=== PATIENT | male | born 1980 | race Caucasian/White ===

== ENCOUNTER 2020-02-14 22:28 | Emergency (ER) | payer SELFPAY ==
--- NOTE | ~2020-02-14 | XR_ITS ---
EXAMINATION: XR chest 2V DATE: 02/14/2020 23:17 INDICATION: Dizziness. TECHNIQUE: Frontal and lateral views of the chest were obtained on 3 radiographs. COMPARISON: None. FINDINGS: The chest demonstrates clear lungs without pneumonia, pleural effusion, or pneumothorax. Th e heart size is normal. IMPRESSION: 1. No acute cardiopulmonary disease. Reviewed, dictated and finalized at location A.
--- NOTE | ~2020-02-14 | CT_ITS ---
EXAMINATION: CT brain wo con DATE: 02/14/2020 23:17 INDICATION: Dizziness. TECHNIQUE: Computed tomography (CT) of the head was performed without intravenous contrast. The mA wa s adjusted according to patient size. Iterative reconstruction technique was employed. The dose-lengt h product was 605.33 mGy-cm. COMPARISON: None FINDINGS: There is no intracranial hemorrhage, acute infarction, or abnormal intracranial mass lesion . The ventricles are normal in size. The orbits are normal. There is mild mucosal thickening in the p aranasal sinuses. The mastoid air cells are normal. IMPRESSION: 1. Normal brain. Reviewed, dictated and finalized at location A. IMPRESSION: 1. Normal brain.
[2020-02-14 22:35] VITALS: BP 151/96; PULSE 84; RESP 20; TEMP 36.9; O2SAT 100
--- NOTE | 2020-02-14 22:35 | ECG_ITS ---
Measurements Intervals [place] Rate: 73 P: 56 [place]: 155 QRS: 9 QRSD: 97 T: 21 QT: 354 QTc: 392 Interpretive Statements SINUS RHYTHM WITH MARKED SINUS ARRHYTHMIA BASELINE ARTIFACT- I, II, III, AVL, AVF BORDERLINE ECG Electronically Signed On 02-16-2020 7:37:57 CDT by Carlos James D.O.
[2020-02-14 22:40] VITALS: PULSE 73
[2020-02-14] MEDS: ONDANSETRON INJ 4 MG/2 ML VIAL IV PUSH (22:43)
[2020-02-14] MEDS: MECLIZINE HCL 25 MG TABLET PO (22:43)
[2020-02-14 22:50] LABS: Basophils Absolute Auto 0.06 K/mm3 (0.00-0.10); Basophils Percent Auto 0.6 % (0.0-1.0); Eosinophils Absolute Auto 0.19 K/mm3 (0.02-0.50); Eosinophils Percent Auto 1.8 % (1.0-6.0); Hematocrit 43.3 % (40.0-54.0); Hemoglobin 14.7 g/dL (14.0-18.0); Immature Granulocyte Absolute 0.06 K/mm3 (0.00-0.00); Immature Granulocyte Percent A 0.6 % (0.0-0.0); Lymphocytes Absolute Auto 2.32 K/mm3 (1.10-4.50); Lymphocytes Percent Auto 22.5 % (18.0-42.0); Mean Corpuscular HGB Conc 33.9 g/dL (32.0-36.0); Mean Corpuscular Hemoglobin 28.4 pg (27.0-31.0); Mean Corpuscular Volume 83.8 fL (78.0-102.0); Mean Platelet Volume 9.6 fl (8.7-11.0); Monocytes Absolute Auto 0.47 K/mm3 (0.10-0.90); Monocytes Percent Auto 4.5 % (2.0-11.0); Neutrophils Absolute Auto 7.2 K/mm3 (1.7-7.2); Platelet Count Result 246 K/mm3 (150-420); Red Blood Count 5.17 M/mm3 (4.70-6.10); Red Cell Distribution Width 12.5 % (11.6-14.4); White Blood Count 10.3 K/mm3 (4.8-10.8)
[2020-02-14 23:03] LABS: D Dimer 0.26 mg/L (0.19-0.50)
[2020-02-14 23:07] LABS: Alanine Aminotransferase 54 U/L (16-63); Albumin Level 3.8 g/dL (3.4-5.0); Alkaline Phosphatase 56 U/L (46-116); Anion Gap 11.8 mmol/L (7-16); Aspartate Amino Transferase 29 U/L (15-37); Bilirubin,Total 0.3 mg/dL (0.00-1.00); Blood Urea Nitrogen 24 mg/dL (7-18); Calcium 8.6 mg/dL (8.5-10.1); Carbon Dioxide 28 mmol/L (21-32); Chloride 103 mmol/L (98-108); Estimated Glomerular Filt Rate > 60; Glucose 143 mg/dL (70-99); Magnesium 1.7 mg/dL (1.8-2.4); Osmolality Calculated 296 mOsm/kg (285-295); Potassium 2.8 mmol/L (3.5-5.1); Sodium 140 mmol/L (136-145); Total Protein 7.1 g/dL (6.4-8.2)
[2020-02-14 23:12] LABS: Troponin I < 0.02 ng/mL (0.00-0.056)
[2020-02-14 23:13] LABS: BNP < 5.0 pg/mL (0-100)
[2020-02-14 23:17] LABS: INR 1.1; Partial Thromboplastin Time 24.7 SEC (22.3-31.6); Prothrombin Time 11.3 Seconds (9.64-11.0)
[2020-02-14 23:24] LABS: Creatine Kinase 423 U/L (39-308)
[2020-02-14] MEDS: KCL 20 MEQ/SW 100 ML 100 ML 50 MEQ IVPB (23:41)
--- NOTE | 2020-02-14 23:41 | ED.GENADULT ---
HPI - General Adult General Chief complaint: Chest Pain Stated complaint: ambulance Source: patient Mode of arrival: ambulatory Limitations: no limitations History of Present Illness HPI narrative: this is a 39-year-old male presents via EMS with some dizziness with nausea with weakness with currently no chest pain no shortness of breath no abdominal pain no diarrhea constipation. Symptoms have been going on for approximately 1 week and felt weak and dizzy and folic he was going to pass out and called EMS. Patient has no significant past medical history, states that he drinks about 4 to 5 energy drinks daily. Onset (ago): day(s) Severity: mild Associated symptoms: diaphoresis, nausea/vomiting and other ( Dizziness) Related Data Allergies Allergy/AdvReac Type Severity Reaction Status Date / Time No Known Allergies Allergy Verified 02/14/20 22:34 Review of Systems Review of Systems: All systems reviewed & are unremarkable except as noted in HPI and below PMFSH Past Medical History Medical History (Updated 02/15/20 @ 00:01 by Pablo De La Paz MD) Patient denies medical problems Exam Const: General: no acute distress and alert Orientation/consciousness: patient oriented x3 HENMT: Head: normal to inspection Ears: TM's normal bilaterally Eyes: Conjunctivae: conjunctivae normal Pupils: Equal, round and reactive pupils present EOM: EOMs intact bilaterally Neck: Neck: normal visual inspection, no lymphadenopathy and no meningeal signs Chest: Chest palpation & inspection: normal inspection of the chest Resp: Effort & Inspection: normal respiratory effort Cardio: Rate: regular rate Rhythm: regular rhythm GI: GI Palp: Yes Soft to palpation : Testes: Testes normal Back/Spine/Pelvis: Back: no CVA tenderness Skin: General skin exam: normal color Rashes: no rashes Neuro: General: patient oriented x3 Speech: normal speech Other: dizziness Psych: Appearance: grossly normal Mental Status: mental status grossly normal Thought content: Yes Normal thought content present Course Course Emergency Course: patient received a dose of meclizine, and Zofran and receiving IV fluids the patient after reassessment still feels little bit dizzy but is markedly improved. Currently there is no chest pain he denies any shortness of breath no nausea currently. Offered keep the patient overnight for observation but he would rather go home and rest with his family. Currently his potassium is 2.8 and will receive AK rider otherwise expressed to the patient that his labs were otherwise unremarkable. Vital Signs Vital signs: Vital Signs Temperature 36.9 C 02/14/20 22:35 Pulse Rate 84 02/14/20 22:35 Respiratory Rate 02/14/20 22:35 Blood Pressure 151/96 H 02/14/20 22:35 Pulse Oximetry 100 02/14/20 22:35 Temperature 36.9 C 02/14/20 22:35 Pulse Rate 84 02/14/20 22:35 Respiratory Rate 02/14/20 22:35 Blood Pressure 151/96 H 02/14/20 22:35 Pulse Oximetry 100 02/14/20 22:35 Medical Decision Making Medical Records Medical records reviewed: Yes I reviewed the patient's medical records. Vital Signs Vital Signs: Vital Signs Temperature 36.9 C 02/14/20 22:35 Pulse Rate 84 02/14/20 22:35 Respiratory Rate 02/14/20 22:35 Blood Pressure 151/96 H 02/14/20 22:35 Pulse Oximetry 100 02/14/20 22:35 Temperature 36.9 C 02/14/20 22:35 Pulse Rate 84 02/14/20 22:35 Respiratory Rate 02/14/20 22:35 Blood Pressure 151/96 H 02/14/20 22:35 Pulse Oximetry 100 02/14/20 22:35 Lab Data Lab results reviewed: Yes I reviewed the patient's lab results. Result diagrams: 02/14/20 22:44 02/14/20 22:44 Labs: Lab Results 02/14/20 02/14/20 02/14/20 Range/Units 22:44 22:44 22:44 WBC 10.3 (4.8-10.8) K/mm3 RBC 5.17 (4.70-6.10) M/mm3 Hgb 14.7 (14.0-18.0) g/dL Hct 43.3 (40.0-54.0) % MCV 83.8 (78.0-102.0) fL MC
[2020-02-15 00:06] VITALS: BP 144/86; PULSE 74; RESP 20; TEMP 36.6; O2SAT 98
[2020-02-15 00:14] LABS: Add Urine Microscopic? NO; Appearance Urine Clear (Clear); Bilirubin Urine Negative (Negative); Blood Urine Negative (Negative); Color Urine Yellow (Yellow); Glucose Urine UA Negative (Negative); Ketones Urine Negative (Negative); Leukocyte Esterase Ur Negative (Negative); Nitrate Urine Negative (Negative); Protein Urine Negative (Negative); Urobilinogen Urine 0.2 mg/dL (0.2-1.0); pH Urine 8.5 (5.0-8.0)
[2020-02-15] MEDS: SODIUM CHLORIDE 0.9% IV 500 ML 999 ML IV CONT (00:15)
[2020-02-15 00:21] LABS: Amphetamine Screen Urine Negative (Negative); Barbiturate Screen Urine Negative (Negative); Benzodiazepines Screen Urine Negative (Negative); Cannabinoid Screen Urine Negative (Negative); Cocaine Screen Urine Negative (Negative); Methadone Screen Urine Negative (Negative); Opiate Screen Urine Negative (Negative); Phencyclidine Screen Urine Negative (Negative)
--- NOTE | 2020-02-15 00:57 | PC.NURSE ---
potassium infusing without difficulty. female in room with pt. watching tv. no complaints voiced.
[2020-02-15 01:52] VITALS: BP 136/81; PULSE 99; RESP 20; TEMP 37.1; O2SAT 98
== END 2020-02-15 01:54 | disposition home or self-care (01) ==
PROVIDERS: Emergency Provider Emergency Medicine; PCP Internal Medicine
DX: R42 Dizziness and giddiness (principal); E87.6 Hypokalemia
CPT/HCPCS: 36415; 70450; 71046; 80053; 80307; 81003; 82550; 83735; 83880; 84484; 85025; 85380; 85610; 85730; 93005; 96365; 96375; 99284; A9270; J2405; J3480; J7040

== ENCOUNTER 2024-02-21 14:50 | Emergency (ER) | payer SELFPAY ==
[2024-02-21] VITALS (24 sets, daily range): BP systolic 137–174; BP diastolic 83–106; PULSE 72–103; RESP 14–32; TEMP 36.6; O2SAT 92–100
--- NOTE | ~2024-02-21 | XR_ITS ---
EXAMINATION: XR chest 1V portable DATE: 02/21/2024 15:45 INDICATION: Hypertension and diaphoresis TECHNIQUE: frontal view of the chest was obtained. COMPARISON: Chest radiograph dated 02/14/2020 FINDINGS: The lungs remain clear with no focal airspace opacities, pulmonary edema, pleural effusion or pneumot horax. The cardiomediastinal silhouette is normal. Visualized bones and soft tissues are unremarkable . IMPRESSION: 1. No acute cardiopulmonary disease. Reviewed, dictated and finalized at location A.
--- NOTE | ~2024-02-21 | CT_ITS ---
CT brain wo con Ordering provider: Agustin Luis MD History: 43 years Male with . severe solano, vertigo . Comparison: February 14, 2020 Technique: CT of the head without contrast. Radiation reduction technique utilized. DLP is 605.33 mGy-cm. FINDINGS: BRAIN PARENCHYMA AND CSF SPACES: No midline shift, mass effect or hemorrhage. The brain parenchyma a nd CSF spaces are otherwise normal. VISUALIZED PARANASAL SINUSES: Well aerated. MASTOIDS: Well aerated. BONES: The bones appear intact. SOFT TISSUES: Visualized nasopharynx is normal. Superficial soft tissues are normal. IMPRESSION: No acute intracranial findings. Reviewed, dictated and finalized at location A.
--- NOTE | 2024-02-21 15:01 | ECG_ITS ---
Test Date: 2024-02-21 14:51:13 Measurements Intervals [place] Rate: 104 P: 70 HI: 148 QRS: 51 QRSD: 90 T: 65 QT: 318 QTc: 419 Interpretive Statements SINUS TACHYCARDIA MINIMAL Q WAVES- INFERIOR LEADS BASELINE ARTIFACT- I, II, III, AVR, AVL, AVF, V4-V6 BORDERLINE ECG No previous ECG available for comparison Electronically Signed On 02-21-2024 16:42:17 CDT by Carlos James D.O.
[2024-02-21 15:44] LABS: Basophils Absolute Auto 0.07 K/mm3 (0.00-0.10); Basophils Percent Auto 0.6 % (0.0-1.0); Eosinophils Absolute Auto 0.07 K/mm3 (0.02-0.50); Eosinophils Percent Auto 0.6 % (1.0-6.0); Hematocrit 48.3 % (40.0-54.0); Hemoglobin 16.5 g/dL (14.0-18.0); Immature Granulocyte Absolute 0.07 K/mm3 (0.00-0.00); Immature Granulocyte Percent A 0.6 % (0.0-0.0); Lymphocytes Absolute Auto 1.87 K/mm3 (1.10-4.50); Lymphocytes Percent Auto 17.4 % (18.0-42.0); Mean Corpuscular HGB Conc 34.2 g/dL (32-36); Mean Corpuscular Hemoglobin 28.3 pg (27.0-31.0); Mean Corpuscular Volume 82.7 fL (78.0-102.0); Mean Platelet Volume 9.5 fl (8.7-11.0); Monocytes Absolute Auto 0.65 K/mm3 (0.10-0.90); Neutrophils Absolute Auto 8.04 K/mm3 (1.70-7.20); Neutrophils Percent Auto 74.8 % (50.0-70.0); Platelet Count Result 273 K/mm3 (150-420); Red Blood Count 5.84 M/mm3 (4.70-6.10); Red Cell Distribution Width 12.5 % (11.6-14.4); White Blood Count 10.8 K/mm3 (4.8-10.8)
[2024-02-21] MEDS: METOPROLOL TARTRATE INJ 5 MG/5 ML VIAL IV PUSH (15:50)
[2024-02-21] MEDS: diazePAM INJ (*CRX) 10 MG/2 ML SYRINGE 5 MG IV PUSH ×2 (15:57→19:34)
[2024-02-21] MEDS: MECLIZINE HCL 25 MG TABLET PO ×2 (15:59→21:08)
[2024-02-21 16:06] LABS: Alanine Aminotransferase 54 U/L (16-63); Albumin Level 4.3 g/dL (3.4-5.0); Alkaline Phosphatase 70 U/L (46-116); Anion Gap 11 mmol/L (4-12); Aspartate Amino Transferase 15 U/L (15-37); Bilirubin,Total 0.4 mg/dL (0.00-1.00); Blood Urea Nitrogen 18 mg/dL (7-18); Calcium 9.9 mg/dL (8.5-10.1); Carbon Dioxide 28 mmol/L (21-32); Chloride 100 mmol/L (98-108); Estimated CRCL calculation 100 ml/min; Estimated Glomerular Filt Rate > 60; Glucose 113 mg/dL (70-99); NT Pro B Type Natriuretic Pept < 11 pg/mL (0-125); Osmolality Calculated 290 mOsm/kg (285-295); Potassium 3.7 mmol/L (3.5-5.1); Sodium 139 mmol/L (136-145); Troponin I < 4.0 ng/L (0.00-60.4)
[2024-02-21 18:05] LABS: Appearance Urine Clear (Clear); Bilirubin Urine Negative (Negative); Blood Urine Negative (Negative); Color Urine Light Yellow (Yellow); Glucose Urine UA Negative (Negative); Ketones Urine Negative (Negative); Leukocyte Esterase Ur Negative LEU/UL (Negative); Nitrate Urine Negative (Negative); Protein Urine Negative (Negative); Urobilinogen Urine 0.2 mg/dL (0.2-1.0)
[2024-02-21 18:08] LABS: Add Urine Microscopic? NO
[2024-02-21] MEDS: ONDANSETRON INJ 4 MG/2 ML VIAL IV PUSH (18:11)
[2024-02-21 18:15] LABS: Amphetamine Screen Urine Negative (Negative); Barbiturate Screen Urine Negative (Negative); Benzodiazepines Screen Urine Negative (Negative); Cannabinoid Screen Urine Positive (Negative); Cocaine Screen Urine Negative (Negative); Methadone Screen Urine Negative (Negative); Opiate Screen Urine Negative (Negative); Phencyclidine Screen Urine Negative (Negative)
[2024-02-21] MEDS: fentaNYL CITRATE INJ (*CRX) 100 MCG/2 ML VIAL IV PUSH (18:15)
--- NOTE | 2024-02-21 18:16 | ED.DIZZY ---
HPI - Dizziness General Chief Complaint: Dizziness Stated Complaint: vertigo Time Seen by Provider: 02/21/24 15:23 Source: patient History of Present Illness HPI Narrative: 43-year-old white male with a long history of intermittent benign positional vertigo, and today it was much more significant than usual, and then he also has developed a headache with it. He reports any change in head position triggers his vertigo. He has to hold his head still and just look around with his eyes. Sitting up, laying back, turning left or right, looking up or down, all triggers the vertigo. When the vertigo hit he gets nauseated, diaphoretic, and he initially went to his doctor's office, it and was diaphoretic when he arrived and they sent him over here for further evaluation. His blood pressure was also noted to be elevated . Related Data Home Medications Medication Instructions Recorded Confirmed amlodipine 10 mg PO DAILY 02/21/24 02/21/24 Allergies Allergy/AdvReac Type Severity Reaction Status Date / Time No Known Allergies Allergy Verified 02/21/24 15:03 Review of Systems Review of Systems: All systems reviewed & are unremarkable except as noted in HPI and below PMFSH Past Medical History Medical History Patient denies medical problems Social History Social History Smoking status: Never smoker Tobacco type: e-cigarettes/vaping Alcohol intake: never Substance use: never Exam Narrative: pleasant well oriented, good historian, muscular, holds his head still while I talk to him and walk around the room. Const: General: healthy appearing, no acute distress, alert and well nourished Nutritional Appearance: well nourished Orientation/consciousness: patient oriented x3 Limitations: no limitations HENMT: Head: normal to inspection Ears: external ears normal Face/Nose/Sinus: Normal external nose present and normal facial exam Face and sinus: normal facial exam Mouth: Yes Normal oral and palatal mucosa present Teeth and gingiva: dentition normal Throat: posterior oropharynx normal Eyes: Conjunctivae: conjunctivae normal Pupils: Equal, round and reactive pupils present EOM: EOMs intact bilaterally Neck: Neck: normal visual inspection and no meningeal signs Chest: Chest palpation & inspection: normal inspection of the chest Resp: Effort & Inspection: normal respiratory effort Auscultation: clear to auscultation bilaterally Cardio: Rate: regular rate Rhythm: regular rhythm GI: GI Palp: Yes Soft to palpation and Yes Tenderness to palpation present (GI) Auscultation: normal bowel sounds Other: No mass, no organomegaly, no percussion or rebound tenderness : General: Yes bladder normal to palpation Skin: General skin exam: normal color Rashes: no rashes Wounds: no wounds Neuro: General: patient oriented x3, moves all extremities, no meningeal signs, no focal motor deficits and CN's II-XI intact bilaterally Cranial nerves: Yes Equal, round and reactive pupils present and Yes Nystagmus not present Speech: normal speech Gait exam (Neuro): Normal gait present Other: Positive Baranay's maneuvers Extrem: General: normal to inspection, no clubbing, cyanosis or edema and no pedal edema Psych: Mental Status: mental status grossly normal Attitude: cooperative Course Course Emergency Course: differential diagnosis includes but is not limited to benign positional vertigo, labyrinthitis, electrolyte abnormality, dehydration, CVA (less likely), complication of hypertension patient's NIH is 0 CBC is normal CMP is normal 2 troponins are flat drug screen is negative except for cannabis chest x-ray did not show any cardiopulmonary disease EKG is non acute CT the head is unremarkable patient was treated with 5 mg of Valium IV, Zofran 4 mg, then 25 of
[2024-02-21 19:16] LABS: Troponin I < 4.0 ng/L (0.00-60.4)
--- NOTE | 2024-02-21 20:22 | PC.NURSE ---
resting quietly on stretcher. family comes and goes out of the room. Call light is in reach. Denies any needs at this time
--- NOTE | 2024-02-21 20:55 | PC.NURSE ---
Jones was notified of current blood pressure
[2024-02-21] MEDS: diazePAM (*CRX) 5 MG TABLET PO (21:08)
--- NOTE | 2024-02-21 21:52 | PC.NURSE ---
ER provider notified of current blood pressure. he will place order fror blood pressure medication prior to discharge
[2024-02-21] MEDS: lisinopriL 10 MG TABLET PO (22:12)
--- NOTE | 2024-02-21 22:39 | PC.NURSE ---
IV line to left ac discontinued. discarded into sharps container. cannula intact.
== END 2024-02-21 22:39 | disposition home or self-care (01) ==
PROVIDERS: Emergency Provider Emergency Medicine; PCP Internal Medicine
DX: H81.10 Benign paroxysmal vertigo, unspecified ear (principal); I10 Essential (primary) hypertension
CPT/HCPCS: 36415; 70450; 71045; 80053; 80307; 81003; 83880; 84484; 85025; 93005; 96374; 96375; 96376; 99284; A9270; J2405; J3010; J3360

== ENCOUNTER 2024-06-17 08:59 | Outpatient (RCR) | payer MEDICAID, SELFPAY ==
--- NOTE | 2024-06-17 09:44 | OPREHPOC ---
Outpatient Therapy Plan of Care This is a Multidisciplinary Plan of Care that may contain components documented by all disciplines (PT, OT, and ST.) PT Problem 1 PT Problem #1 Knowledge Deficit PT Goal 1 Goal / Goal Update 1. independent and compliant with HEP Target Visit 6 PT Problem 2 PT Problem #2 Pain PT Goal 1 Goal / Goal Update 1. decrease pain at worst to 3/10 or less in the lower back Target Visit 12 PT Problem 3 PT Problem #3 Impaired Strength PT Goal 1 Goal / Goal Update 1. improve R hip strength to 5/5 or better overall 2. improve lumbar extension strength to 5/5 Target Visit 12 PT Problem 4 PT Problem #4 Impaired Flexibility PT Goal 1 Goal / Goal Update 1. improve bilateral hamstrings flexibility to 20 degrees or less from 0 per the 90/90 test. Target Visit 12 PT Problem 5 PT Problem #5 Impaired Functional Mobil PT Goal 1 Goal / Goal Update 1. oswestry to display 10% or less functional deficits 2. patient to displays safe/good lifting mechanics without pain 3. patient to lift 40lbs from floor to waist x10 reps without pain 4. patient to develop a 3x weekly workout regimen Target Visit 12
--- NOTE | 2024-06-17 09:44 | PTOPEVAL1 ---
Assessment and note entered by JT File, PT Evaluation Information Assessment Status Evaluation ICD-10 Condition Codes (PT) Pain in low back M54.50 Onset 06/10/24 Subjective Information patient reports he has had pain in the back for years. he reports he was told he has narrowing of the spine. he reports he does work. 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 he reports he has increased pain in the lower back with bending and lifting. he reports he does not have any symptoms down the legs. he reports the pain is mostly in the lower back along the L side of the spine. he reports he has reduced pain and symptoms with sitting. he reports he has to avoid certain movements/motions to avoid increased pain. he reports he did have xrays here at [facility]. Reported Pain Level Pain Score 1: Self Report Assessment PT Clinical Summary mr. juárez is a 43 yo man who presents to skilled PT services for evaluation and treatment of lower back pain. he presents today with normal lumbar rom, weak R hip extension/abduction, weak core strength, and deficits in flexion/lifting activities. however, he reports no radicular symptoms. he likely suffers from lumbar/core weakness and instability vs having a discoid injury. he would benefit from continued skilled PT to address his objective/functional deficits and progress towards a return to prior level functional activity performance/quality of life. Plan of Care Interventions Electrical Stimulation,Gait Training,Hot Pack/Cold Pack,Manual Therapy,Neuro Re-education,Patient/ Caregiver Educati,Therapeutic Activities, Therapeutic Exercise PT Services Indicated Yes Treatment Frequency and 2x weekly for 12 visits Duration These treatments will address the objective and functional deficits as defined above. The patient will be advanced safely and appropriately in order for the patient to progress towards his/her prior level of function. Additional exercises will be introduced and as well as a comprehensive home exercise program upon discharge, if needed, ?to ensure carryover of functional gains achieved in the clinic. This treatment plan has been reviewed and agreement upon by the patient.
--- NOTE | 2024-07-18 09:03 | OPREHPOC ---
Outpatient Therapy Plan of Care This is a Multidisciplinary Plan of Care that may contain components documented by all disciplines (PT, OT, and ST.) PT Problem 1 PT Problem #1 Knowledge Deficit PT Goal 1 Goal / Goal Update 1. independent and compliant with HEP Target Visit 6 Progress Met PT Problem 2 PT Problem #2 Pain PT Goal 1 Goal / Goal Update 1. decrease pain at worst to 3/10 or less in the lower back Target Visit 12 Progress Not Met PT Problem 3 PT Problem #3 Impaired Strength PT Goal 1 Goal / Goal Update 1. improve R hip strength to 5/5 or better overall 2. improve lumbar extension strength to 5/5 Target Visit 12 Progress Met PT Problem 4 PT Problem #4 Impaired Flexibility PT Goal 1 Goal / Goal Update 1. improve bilateral hamstrings flexibility to 20 degrees or less from 0 per the 90/90 test. Target Visit 12 Progress Not Met PT Problem 5 PT Problem #5 Impaired Functional Mobility PT Goal 1 Goal / Goal Update 1. oswestry to display 10% or less functional deficits 2. patient to displays safe/good lifting mechanics without pain 3. patient to lift 40lbs from floor to waist x10 reps without pain 4. patient to develop a 3x weekly workout regimen Target Visit 12 Progress Not Met
--- NOTE | 2024-07-18 09:04 | PTOPPROGNS ---
Assessment and note entered by JT File, PT Evaluation Information Assessment Status Progress ICD-10 Condition Codes (PT) Pain in low back M54.50 Onset 06/10/24 Subjective Information patient reports the R shoulder is bothering him still. he has no orders to treat the R shoulder at this time, and just had an MRI of the R shoulder. he reports he is scheduled to see his PCP today to discuss the results of his MRI. as for the back , patient reports he is feeling good today. he reports he has no pain entering therapy today, but still gets pain with bending and lifting activities. he reports he has been avoiding picking up his kids in fear of increasing his pain . Assessment PT Clinical Summary mr. juárez presents to skilled PT for his 10th skilled PT visit today. he presents with no pain today, but a recent flare up of symptoms a week or so ago. he has continued to avoid picking up his kids or performing any lifting activities due to fear of increased back pain. however, he is making progress towards goals. patient would benefit from continued skilled PT to further work towards progression and achievement of goals for skilled PT to return to his prior level functional activity performance/quality of life. Plan of Care Interventions Electrical Stimulation,Gait Training,Hot Pack/Cold Pack,Manual Therapy,Neuro Re-education,Patient/ Caregiver Education,Therapeutic Activities, Therapeutic Exercise PT Services Indicated Yes Treatment Frequency and continue per initial POC Duration These treatments will address the objective and functional deficits as defined above. The patient will be advanced safely and appropriately in order for the patient to progress towards his/her prior level of function. Additional exercises will be introduced and as well as a comprehensive home exercise program upon discharge, if needed, ?to ensure carryover of functional gains achieved in the clinic. This treatment plan has been reviewed and agreement upon by the patient.
--- NOTE | 2024-07-24 07:53 | OPREHPOC ---
Outpatient Therapy Plan of Care This is a Multidisciplinary Plan of Care that may contain components documented by all disciplines (PT, OT, and ST.) PT Problem 1 PT Problem #1 Knowledge Deficit PT Goal 1 Goal / Goal Update 1. independent and compliant with HEP Target Visit 6 Progress Met PT Problem 2 PT Problem #2 Pain PT Goal 1 Goal / Goal Update 1. decrease pain at worst to 3/10 or less in the lower back Target Visit 12 Progress Not Met PT Problem 3 PT Problem #3 Impaired Strength PT Goal 1 Goal / Goal Update 1. improve R hip strength to 5/5 or better overall 2. improve lumbar extension strength to 5/5 Target Visit 12 Progress Met PT Problem 4 PT Problem #4 Impaired Flexibility PT Goal 1 Goal / Goal Update 1. improve bilateral hamstrings flexibility to 20 degrees or less from 0 per the 90/90 test. Target Visit 12 Progress Met PT Problem 5 PT Problem #5 Impaired Functional Mobility PT Goal 1 Goal / Goal Update 1. oswestry to display 10% or less functional deficits. not met 2. patient to displays safe/good lifting mechanics without pain. safe mechanics, but increased pain 3. patient to lift 40lbs from floor to waist x10 reps without pain. not met 4. patient to develop a 3x weekly workout regimen. performs HEP Target Visit 12 Progress Partially Met
--- NOTE | 2024-07-24 07:54 | PTOPDC ---
Assessment and note entered by JT File, PT Evaluation Information Assessment Status Discharge ICD-10 Condition Codes (PT) Pain in low back M54.50 Onset 06/10/24 Subjective Information patient reports he feels Good today. he reports when he is at rest, standing, or walking he has no pain. however, his pain still increases with bending and lifting activities. he reports he would like to return to the MD to have an MRI ordered of the lumbar spine. he reports he has not called to schedule this follow up yet with this MD, but plans to call after todays therapy exercises and re-evaluation. Reported Pain Level Pain Score 0: Self Report Assessment PT Clinical Summary mr. juárez presents to skilled PT for his 12th skilled PT visit. he presents with no pain at rest , but continues to have pain flare up with bending and lifting. 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 he has met 44.4% of his goals for skilled PT as of today. he will DC skilled PT today, and return to MD for follow up and hopes of having an MRI of the lumbar spine. Plan of Care PT Services Indicated Yes
== END 2024-07-24 09:19 | disposition home or self-care (01) ==
LOC: CHSPT 08:59
PROVIDERS: PCP Nurse Practitioner Family; Visit Provider Nurse Practitioner Family
DX: M54.50 Low back pain, unspecified (principal)
CPT/HCPCS: 97014; 97110; 97140; 97161; 97530; G0283

== ENCOUNTER 2024-06-23 10:05 | Outpatient (CLI) | payer MEDICAID, SELFPAY ==
--- NOTE | ~2024-06-23 | XR_ITS ---
XR shoulder RT min 2V Ordering provider: Feroz Rivera MD History: . Recurrent Dislocation R Shoulder,LROM . Comparison: None. FINDINGS: BONES: No acute fracture or dislocation. JOINT SPACES: Calcification in the acromioclavicular joint is noted. Otherwise The acromioclavicular joint is normal. The glenohumeral joint is normal. SOFT TISSUES: Normal. IMPRESSION: No acute osseous abnormality right shoulder. Chondrocalcinosis in the acromioclavicular joint. Reviewed, dictated and finalized at location A. FRAME TENDER
== END 2024-06-23 10:06 | disposition home or self-care (01) ==
LOC: CHSIMG 10:07
PROVIDERS: PCP Internal Medicine; Visit Provider Internal Medicine
DX: M24.411 Recurrent dislocation, right shoulder (principal); M11.211 Other chondrocalcinosis, right shoulder
CPT/HCPCS: 73030

== ENCOUNTER 2024-07-12 09:13 | Outpatient (CLI) | payer MEDICAID, SELFPAY ==
--- NOTE | ~2024-07-12 | MR_ITS ---
EXAMINATION: MR shoulder RT wo con DATE: 07/12/2024 10:22 INDICATION: Recurrent dislocation of right shoulder. TECHNIQUE: Magnetic resonance imaging (MRI) of the right shoulder was performed without intravenous c ontrast. Sequences included axial PD-weighted FS FSE, coronal oblique PD-weighted FS FSE and T2-weigh samm FS FSE, and sagittal oblique T2-weighted FS FSE and T1-weighted FSE. COMPARISON: Right shoulder radiographs 06/23/2024 FINDINGS: Coracoacromial arch: The acromion undersurface is flat in morphology (type I). There is moderate acromioclavicular joint o steoarthritis. There is mild subacromial/subdeltoid bursitis. Rotator cuff: There is mild supraspinatus and infraspinatus tendinopathy. Teres minor tendon is normal. Subscapular is tendon is normal. The rotator cuff muscle bellies are normal. Biceps tendon and glenoid labrum: Biceps tendon is in bicipital groove. There is mild intra-articular biceps tendinopathy. There is deg eneration of the labrum. There is a tear of anteroinferior labrum. Fluid: There is a small glenohumeral joint effusion. Bones/cartilage: Glenoid cartilage is normal. The humeral head cartilage is normal. IMPRESSION: 1. Tear of the anteroinferior glenoid labrum. 2. Hill-Sachs fracture deformity. 3. Moderate acromioclavicular joint osteoarthritis. 4. Mild subacromial/subdeltoid bursitis. 5. Small glenohumeral joint effusion. 6. Mild rotator cuff tendinopathy. No tear. Reviewed, dictated and finalized at location A. RGRADUATE INTERN
== END 2024-07-12 09:14 | disposition home or self-care (01) ==
LOC: CHSIMG 09:14
PROVIDERS: PCP Internal Medicine; Visit Provider Internal Medicine
DX: M24.411 Recurrent dislocation, right shoulder (principal); S43.431A Superior glenoid labrum lesion of right shoulder, initial encounter; M19.011 Primary osteoarthritis, right shoulder; M75.51 Bursitis of right shoulder; M25.411 Effusion, right shoulder
CPT/HCPCS: 73221

== ENCOUNTER 2024-10-12 17:27 | Emergency (ER) | payer OTHER, SELFPAY ==
--- NOTE | ~2024-10-12 | XR_ITS ---
EXAM: XR hip LT 2V w AP pelvis DATE: 10/12/2024 17:51 HISTORY: severe Lt. hip pain/ inability to bear weight after standing . COMPARISON: None available. FINDINGS: Normal mineralization. No fracture or dislocation. No lytic or blastic lesion. Mild degene rative change in the bilateral hips. Chondrocalcinosis at the pubic symphysis. No erosion or perioste al change. Soft tissues within normal limits. IMPRESSION: No acute osseous finding in the pelvis or left hip. Reviewed, dictated and finalized at location K.
[2024-10-12 17:27] VITALS: BP 148/88; PULSE 92; RESP 20; TEMP 37.1; O2SAT 100
--- OUTSIDE RECORDS SUMMARY | 2024-10-12 17:32 | XMS_ITS | Referral Summary ---
Author Organization [facility] Medical Office Building B Address [address] [place] [address] Care Team Providers Care Rn Cardiovascular Name Role Phone Feroz Rivera MD Primary Care Provider Encounters Date Type Department Care Team Description 08/15/2024 Telephone [facility] Medical [facility] Orthopedic and Sports Medicine [address] [place] [phone] Mehdi Mayers MD 08/15/2024 9:30 AM FROZEN FOOD SELECTOR Ancillary Procedure [facility] Imaging at [address] [phone] 08/15/2024 9:30 AM FROZEN FOOD SELECTOR Office Visit [facility] Orthopedic and Sports Medicine [address] [place] [phone] Mehdi Mayers MD Bankart lesion of right shoulder, initial encounter (Primary Dx); Acute pain of right shoulder; Instability of right shoulder joint 08/04/2024 Telephone [facility] Orthopedics and Sports Medicine [address] [place] [address] [place] [phone] Mehdi Mayers MD Appointment; R shoulder from Last 3 Months Allergies No known active allergies Medications amLODIPine (NORVASC) 10 mg tablet Take 1 tablet (10 mg total) by mouth daily Active montelukast (SINGULAIR) 10 mg tablet Take 1 tablet (10 mg total) by mouth nightly Active fexofenadine (HORTENSIA) 60 mg tablet Take 1 tablet (60 mg total) by mouth daily Active atorvastatin (LIPITOR) 10 mg tablet Take 1 tablet (10 mg total) by mouth daily Active fluticasone propionate (FLONASE) 50 mcg/actuation nasal spray Administer 1 spray into each nostril daily Active losartan-hydroC HLOROthiazide (HYZAAR) 50-12.5 mg per tablet Take 1 tablet by mouth daily Active Active Problems No known active problems Social History Tobacco Use Types Packs/Day Years Used Date Smoking Tobacco: Never Smokeless Tobacco: Never AUDIT-C Answer Date Recorded Q1: How often do you have a drink containing alc ohol? Never 08/15/2024 Average Number of Drinks Not on file 025 Frequency of Binge Drinking Not on file 08/06 Sex and Gender Information Value Date Recorded Sex Assigned at Not on file Legal Sex Male 10:51 AM FROZEN FOOD SELECTOR Gender Identity Not on file Sexual Orientation Not on file Last Filed Vital Signs Vital Sign Reading Time Taken Comments Blood Pressure 146/84 08/15/2024 9:39 AM FROZEN FOOD SELECTOR Pulse 90 08/15/2024 9:39 AM FROZEN FOOD SELECTOR Temperature - - Respiratory Rate - - Oxygen Saturation - - Inhaled Oxygen Concentration - - Weight 104 kg (229 lb 4.8 oz) 08/15/2024 9:39 AM FROZEN FOOD SELECTOR Height 171.5 cm (5' 7.5 ) 08/15/2024 9:39 AM FROZEN FOOD SELECTOR Body Mass Index 35.38 08/15/2024 9:39 AM FROZEN FOOD SELECTOR Plan of Treatment Not on file Procedures Procedure Name Priority Date/Time Associated Diagnosis Comments XR SHOULDER RIGHT 2 OR MORE VIEWS Routine 08/15/2024 9:34 AM FROZEN FOOD SELECTOR Acute pain of right shoulder from Last 3 Months Results * XR Shoulder Right 2 or More Views (08/15/2024 9:34 AM FROZEN FOOD SELECTOR) Anatomical Region Laterality Modality Upper Extremities, Shoulder Right [place] Radiography Narrative 08/15/2024 10:02 AM FROZEN FOOD SELECTOR Four views right shoulder shows no fracture subluxation or dislocation 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
--- OUTSIDE RECORDS SUMMARY | 2024-10-12 17:32 | XMS_ITS | Clinical Summary ---
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 Gender Identity Not on file Sexual Orientation Not on file Plan of Treatment Health Maintenance Due Date Last Done Comments Annual Physical 1984 Hepatitis C 1999 DTaP, Tdap and Td Vaccines ( 1 - Tdap) 2000 Hepatitis B Vaccines (1 of 3 - 19+ 3-dose series) 2000 COVID-19 Vaccine (2023-2 5 season) 2024 Influenza Adult (#1) 2024 HPV Vaccines Aged Out No longer eligi ble based on patient's age to complete this topic Meningococcal B Vaccine Aged Out No l onger eligible based on patient's age to complete this topic Meningococcal Vaccine Aged Out No migdalia gerald eligible based on patient's age to complete this topic Pneumococcal Vaccine: Pediat rics (0 to 5 Years) and At-Risk Patients (6 to 64 Years) Aged Out No longer eligible b ased on patient's age to complete this topic RSV Immunizations Under 20 Months Aged Out No longer eligible based on patient's age to complete this topic
--- OUTSIDE RECORDS SUMMARY | 2024-10-12 17:32 | XMS_ITS | Clinical Summary ---
Author Organization [facility] Medical Office Building B Address [address] [place] [address] Care Team Providers Care Nutrition And Dietetics Instructor Name Role Phone Feroz Rivera MD Primary Care Provider Allergies No known active allergies Medications amLODIPine [...] Active Active Problems No known active problems Encounters Date Type Department Care Team Description 08/15/2024 9:30 AM FILM SORTER Ancillary Procedure [facility] Imaging at [address] [phone] 08/15/2024 9:30 AM FILM SORTER Office Visit [facility] Medical [facility] Orthopedic and Sports Medicine [address] [place] [phone] Mehdi Mayers MD Bankart lesion of right shoulder, initial encounter (Primary Dx); Acute pain of right shoulder; Instability of right shoulder joint 08/15/2024 Telephone [facility] Orthopedic and Sports Medicine [address] [place] [phone] Mehdi Mayers MD 08/04/2024 Telephone [facility] Orthopedics and Sports Medicine [address] [place] [address] [address] [place] [address] Mehdi Mayers MD Appointment; R shoulder from Last 3 Months Medical History Medical History Date Comments Hypertension Family History Medical History Relation Name Comments Hypertension Father Hypertension Mother Relation Name Status Comments Father Mother Alive Social History Tobacco Use Types Packs/Day Years [...] on file Legal Sex Male 10:51 AM FILM SORTER Gender Identity Not on file Sexual Orientation Not on file Obstetrics History Last Filed Vital Signs Vital Sign Reading Time Taken Comments Blood Pressure 146/84 08/15/2024 9:39 AM FILM SORTER Pulse 90 08/15/2024 9:39 AM FILM SORTER Temperature - - Respiratory Rate - - Oxygen Saturation - - Inhaled Oxygen Concentration - - Weight 104 kg (229 lb 4.8 oz) 08/15/2024 9:39 AM FILM SORTER Height 171.5 cm (5' 7.5 ) 08/15/2024 9:39 AM FILM SORTER Body Mass Index 35.38 08/15/2024 9:39 AM FILM SORTER Plan of Treatment Health Maintenance Due Date Last Done Comments Depression Screening 1981 Hepatitis C Screening 1981 DTaP/Tdap/Td Vaccine (1 - Tdap) 1992 Varicella Vaccines (1 of 2 - 13+ 2-dose series) 1994 Hepatitis B Screening 1999 Regular Well Visit/Exam 18-64 1999 Influenza Vaccine (#1) 2024 HPV Vaccines Aged Out No longer eligi ble based on patient's age to complete this topic Pneumococcal vaccine <65 Aged Out No longer eligible based on patient's age to complete this topic Procedures Procedure Name Priority Date/Time Associated Diagnosis Comments XR SHOULDER RIGHT 2 OR MORE VIEWS Routine 08/15/2024 9:34 AM FILM SORTER Acute pain of right shoulder from Last 3 Months Results * XR Shoulder Right 2 or More Views (08/15/2024 9:34 AM FILM SORTER) Anatomical Region Laterality Modality Upper Extremities, Shoulder Right [place] Radiography Narrative 08/15/2024 10:02 AM FILM SORTER Four views right shoulder shows no fracture subluxation or dislocation 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
--- NOTE | 2024-10-12 17:34 | ED_ITS ---
HPI - General Adult General Chief complaint: Extremity Injury, Lower Stated complaint: left hip pain Time Seen by Provider: 10/12/24 17:31 History of Present Illness HPI narrative: Oumar is a 44M with a PMH of anxiety, BPPV that presented to the ED with left hip pain. It started after he stood up from a chair and heard a pop. He then had severe pain and inability to bear weight. No falls or other trauma. Related Data Home Medications ?Medication ?Instructions ?Recorded ?Confirmed ?Last Taken ?Type amlodipine 10 mg PO DAILY 02/21/24 02/21/24 Unknown History Allergies Allergy/AdvReac Type Severity Reaction Status Date / Time No Known Allergies Allergy Verified 10/12/24 17:34 Review of Systems Review of Systems: All systems reviewed & are unremarkable except as noted in HPI and below [facility] Past Medical History Medical History Anxiety Patient denies medical problems Social History Social History Smoking status: Never smoker Tobacco type: e-cigarettes/vaping Alcohol intake: never Substance use: never Exam Const: General: cooperative, healthy appearing, comfortable, no acute distress, well developed, alert, awake and Physically active Orientation/consciousness: oriented to person, oriented to place and oriented to time HENMT: Head: normal to inspection, normocephalic and atraumatic Ears: h earing grossly normal bilaterally and external ears normal Face/Nose/Sinus: Normal external nose present Eyes: General: appearance normal, both eyes and all related structures Periorbital: periorbital findings normal Sclera: sclerae normal Pupils: Equal, round and reactive pupils present Neck: Neck: normal visual inspection Chest: Chest palpation & inspection: normal inspection of the chest Resp: Effort & Inspection: normal respiratory effort, able to speak in complete sentences and no respiratory distress Cardio: Jugular venous distension: no JVD Skin: General skin exam: normal color and no rashes or lesions noted Neuro: General: oriented to person, oriented to place and oriented to time Cranial nerves: Yes Equal, round and reactive pupils present Extrem: General: normal to inspection Other: Will not bear weight migdalia left hip Course Course Emergency Course: ordered radiographs and toradol EXAM: XR hip LT 2V w AP pelvis DATE: 10/12/2024 17:51 HISTORY: severe Lt. hip pain/ inability to bear weight after standing . COMPARISON: None available. FINDINGS: Normal mineralization. No fracture or dislocation. No lytic or blastic lesion. Mild degenerative change in the bilateral hips. Chondrocalcinosis at the pubic symphysis. No erosion or periosteal change. Soft tissues within normal limits. IMPRESSION: No acute osseous finding in the pelvis or left hip. Vital Signs Vital signs: Vital Signs Temperature 98.8 F 10/12/24 17:27 Pulse Rate 92 10/12/24 17:27 Respiratory Rate 20 10/12/24 17:27 Blood Pressure 148/88 H 10/12/24 17:27 Pulse Oximetry 100 10/12/24 17:27 Oxygen Delivery Room Air 10/12/24 17:27 Temperature 98.8 F 10/12/24 17:27 Pulse Rate 92 10/12/24 17:27 Respiratory Rate 20 10/12/24 17:27 Blood Pressure 148/88 H 10/12/24 17:27 Pulse Oximetry 100 10/12/24 17:27 Oxygen Delivery Room Air 10/12/24 17:27 Medical Decision Making Vital Signs Vital Signs: Vital Signs Temperature 98.8 F 10/12/24 17:27 Pulse Rate 92 10/12/24 17:27 Respiratory Rate 20 10/12/24 17:27 Blood Pressure 148/88 H 10/12/24 17:27 Pulse Oximetry 100 10/12/24 17:27 Oxygen Delivery Room Air 10/12/24 17:27 Temperature 98.8 F 10/12/24 17:27 Pulse Rate 92 10/12/24 17:27 Respiratory Rate 20 10/12/24 17:27 Blood Pressure 148/88 H 10/12/24 17:27 Pulse Oximetry 100 10/12/24 17:27 Oxygen Delivery Room Air 10/12/24 17:27 Discharge Plan Discharge Clinical Impression: Acute pain of left hip Patient Disposition: Home, Self-Care Condition: Stable Instructions: Hip Pain (ED) Patient Language: Namibian Prescriptions: New meloxicam 15 mg tablet 15 mg PO DAILY Qty: 10 0RF No Action amlodipine tablet 10 mg PO DAILY lisinopril 10 mg tablet 10 mg PO DAILY Qty: 30 0RF meclizine 25 mg tablet 25 mg PO QID Qty: 120 0RF diazepam 5 mg tablet 5 mg PO Q6H PRN (Reason: vertigo) Qty: 40 0RF diazepam [Valium] 5 mg tablet 5 mg PO Q6H PRN (Reason: anxiety) Qty: 20 0RF Follow-up/Referrals: Feroz Rivera MD [Primary Care Provider] -
[2024-10-12] MEDS: KETOROLAC 30 MG/ML VIAL (*BKC) IM (18:19)
[2024-10-12 18:40] VITALS: BP 143/83; PULSE 88; RESP 18; TEMP 36.7; O2SAT 100
== END 2024-10-12 18:40 | disposition home or self-care (01) ==
PROVIDERS: Emergency Provider Family Medicine; PCP Internal Medicine
DX: M25.552 Pain in left hip (principal)
CPT/HCPCS: 73502; 96372; 99283; J1885

== ENCOUNTER 2024-10-15 11:02 | Outpatient (RCR) | payer OTHER, SELFPAY ==
--- NOTE | 2024-10-15 11:59 | OPREHPOC ---
Outpatient Therapy Plan of Care This is a Multidisciplinary Plan of Care that may contain components documented by all disciplines (PT, OT, and ST.) PT Problem 1 PT Problem #1 Knowledge Deficit PT Goal 1 Goal / Goal Update Independent with HEP. Target Visit 4 PT Problem 2 PT Problem #2 Pain PT Goal 1 Goal / Goal Update Pt to note no more than 4/10 L hip pain at worst. Pt to be stand and walk with no more than 4/10 L hip pain after sitting for more than 3 hours. Target Visit 10 PT Problem 3 PT Problem #3 Impaired Strength PT Goal 1 Goal / Goal Update Pt to improve gross LE strength to 5/5 for improved dynamic stability for functional tasks. Target Visit 10
--- NOTE | 2024-10-15 11:59 | PTOPEVAL1 ---
Assessment and note entered by Marah Marcus, PT Evaluation Information Assessment Status Evaluation ICD-10 Condition Codes (PT) Pain in left hip M25.552,Difficulty Walking R26.2 Onset 10/13/11 Subjective Information Pt reports onset of hip pain 3 days ago, states he was sitting for hours and when he got up he heard a pop and he suddenly prevented him from walking, states he went to the ER and x-rays ruled out any fracture. States while he was in the ER he was given a toradol injection and is currently taking meloxicam but doesn't feel like it helps. He occasionally is woken up at night due to pain. His pain is sharp/shooting in nature and is aggravated by prolonged sitting and moving it the wrong way. He states he's been putting ice on his hip and resting while also still trying to be active. Reports he has previously received PT for a herniated disc and has been doing exercises for his low back a couple times a week. Reported Pain Level Pain Score 0: Self Report Assessment PT Clinical Summary Mr. Yoder is a 44 yo male presenting to physical therapy with complaints of L hip pain. His pain is intermittent and shooting in nature and is aggravated by prolonged sitting and occasionally by lifting objects from the ground. When his pain is heightened he is unable to walk and this is interfering with his ability to work and spend time with his children. During objective examination the L hip was grossly pain-free but mildly reproduced with OSEAS test, and low back pain was reproduced with end-range hip flexion, FADIR test and hip scouring. There is potential for his hip pain to be originating from his low back due to history of disc herniation. He will benefit from skilled PT intervention to improve on these deficits and be able to perform all functional and work activities without pain. Plan of Care Interventions Electrical Stimulation,Gait Training,Hot Pack/Cold Pack,Intermittent Compression Pump,Manual Therapy ,Neuro Re-education,Patient/Caregiver Education, Therapeutic Activities,Therapeutic Exercise,Self- Care/Home Management PT Services Indicated Yes Treatment Frequency and 2x/week for 10 visits Duration These treatments will address the objective and functional deficits as defined above. The patient will be advanced safely and appropriately in order for the patient to progress towards his/her prior level of function. Additional exercises will be introduced and as well as a comprehensive home exercise program upon discharge, if needed, ?to ensure carryover of functional gains achieved in the clinic. This treatment plan has been reviewed and agreement upon by the patient.
== END 2025-01-13 23:59 | disposition home or self-care (01) ==
LOC: CHSPT 11:02
PROVIDERS: PCP Nurse Practitioner Family; Visit Provider Nurse Practitioner Family
DX: M25.552 Pain in left hip (principal)
CPT/HCPCS: 97014; 97110; 97112; 97161; 97530; G0283

== ENCOUNTER 2024-11-03 09:39 | Outpatient (CLI) | payer OTHER, SELFPAY ==
[2024-11-03 09:54] LABS: Basophils Absolute Auto 0.09 K/mm3 (0.00-0.10); Basophils Percent Auto 0.8 % (0.0-1.0); Eosinophils Absolute Auto 0.26 K/mm3 (0.02-0.50); Eosinophils Percent Auto 2.3 % (1.0-6.0); Hematocrit 46.3 % (40.0-54.0); Hemoglobin 15.2 g/dL (14.0-18.0); Immature Granulocyte Absolute 0.05 K/mm3 (0.00-0.00); Immature Granulocyte Percent A 0.4 % (0.0-0.0); Lymphocytes Absolute Auto 1.83 K/mm3 (1.10-4.50); Lymphocytes Percent Auto 15.9 % (18.0-42.0); Mean Corpuscular HGB Conc 32.8 g/dL (32-36); Mean Corpuscular Hemoglobin 27.7 pg (27.0-31.0); Mean Corpuscular Volume 84.5 fL (78.0-102.0); Mean Platelet Volume 9.2 fl (8.7-11.0); Monocytes Absolute Auto 0.91 K/mm3 (0.10-0.90); Monocytes Percent Auto 7.9 % (2.0-11.0); Neutrophils Absolute Auto 8.36 K/mm3 (1.70-7.20); Neutrophils Percent Auto 72.7 % (50.0-70.0); Platelet Count Result 314 K/mm3 (150-420); Red Blood Count 5.48 M/mm3 (4.70-6.10); Red Cell Distribution Width 12.3 % (11.6-14.4); White Blood Count 11.5 K/mm3 (4.8-10.8)
[2024-11-03 10:00] LABS: Monoscreen Negative (Negative); Negative Monotest Control Negative (Negative); Positive Monotest Control Positive (Positive)
[2024-11-03 10:17] LABS: Strep Group A RT-PCR DETECTED (Negative)
[2024-11-03 10:20] LABS: Alanine Aminotransferase 34 U/L (16-63); Alkaline Phosphatase 98 U/L (46-116); Anion Gap 9 mmol/L (4-12); Aspartate Amino Transferase 18 U/L (15-37); Bilirubin,Total 0.4 mg/dL (0.00-1.00); Blood Urea Nitrogen 15 mg/dL (7-18); Calcium 9.2 mg/dL (8.5-10.1); Carbon Dioxide 29 mmol/L (21-32); Chloride 103 mmol/L (98-108); Estimated Glomerular Filt Rate > 60; Glucose 93 mg/dL (70-99); Osmolality Calculated 292 mOsm/kg (285-295); Potassium 4.2 mmol/L (3.5-5.1); Sodium 141 mmol/L (136-145); Total Protein 7.8 g/dL (6.4-8.2)
--- OUTSIDE RECORDS SUMMARY | 2024-11-03 10:33 | XMS_ITS | Clinical Summary ---
Author Organization [facility] Medical Office Building B Address [address] [place] [address] Care Team Providers Care Scientific Laboratory Supervisor Name Role Phone Feroz Rivera MD Primary Care Provider [phone] Allergies No known active allergies Medications amLODIPine [...] Department Care Team Description 08/15/2024 9:30 AM COTTON STOMPER Ancillary Procedure [facility] Imaging at [address] [phone] 08/15/2024 9:30 AM COTTON STOMPER Office Visit [facility] Orthopedic and Sports Medicine [address] [place] [phone] Mehdi Mayers MD Bankart lesion of right shoulder, initial encounter (Primary Dx); Acute pain of right shoulder; Instability of right shoulder joint 08/15/2024 Telephone [facility] Orthopedic and Sports Medicine [address] [place] [phone] Mehdi Mayers MD from Last 3 Months Medical History Medical [...] on file Legal Sex Male 10:51 AM COTTON STOMPER Gender Identity Not on file Sexual Orientation Not on file Obstetrics History Last Filed Vital Signs Vital Sign Reading Time Taken Comments Blood Pressure 146/84 08/15/2024 9:39 AM COTTON STOMPER Pulse 90 08/15/2024 9:39 AM COTTON STOMPER Temperature - - Respiratory Rate - - Oxygen Saturation - - Inhaled Oxygen Concentration - - Weight 104 kg (229 lb 4.8 oz) 08/15/2024 9:39 AM COTTON STOMPER Height 171.5 cm (5' 7.5 ) 08/15/2024 9:39 AM COTTON STOMPER Body Mass Index 35.38 08/15/2024 9:39 AM COTTON STOMPER Plan of Treatment Health Maintenance Due Date [...] OR MORE VIEWS Routine 08/15/2024 9:34 AM COTTON STOMPER Acute pain of right shoulder from Last 3 Months Results * XR Shoulder Right 2 or More Views (08/15/2024 9:34 AM COTTON STOMPER) Anatomical Region Laterality Modality Upper Extremities, Shoulder Right [place] Radiography Narrative 08/15/2024 10:02 AM COTTON STOMPER Four views right shoulder shows no fracture subluxation or dislocation 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
--- OUTSIDE RECORDS SUMMARY | 2024-11-03 10:33 | XMS_ITS | Referral Summary ---
Author Organization [facility] Medical Office Building B Address [address] [place] [address] Care Team Providers Care Concrete Craftsman Name Role Phone Feroz Rivera MD Primary Care Provider Encounters Date Type Department Care Team Description 08/15/2024 Telephone [facility] Medical [facility] Orthopedic and Sports Medicine [address] [place] [phone] Mehdi Mayers MD 08/15/2024 9:30 AM CONSTRUCTION CODE ADMINISTRATOR Ancillary Procedure [facility] Imaging at [address] [phone] 08/15/2024 9:30 AM CONSTRUCTION CODE ADMINISTRATOR Office Visit [facility] Orthopedic and Sports Medicine [address] [place] [phone] Mehdi Mayers MD Bankart lesion of right shoulder, initial encounter (Primary Dx); Acute pain of right shoulder; Instability of right shoulder joint from Last 3 Months Allergies No known [...] on file Legal Sex Male 10:51 AM CONSTRUCTION CODE ADMINISTRATOR Gender Identity Not on file Sexual Orientation Not on file Last Filed Vital Signs Vital Sign Reading Time Taken Comments Blood Pressure 146/84 08/15/2024 9:39 AM CONSTRUCTION CODE ADMINISTRATOR Pulse 90 08/15/2024 9:39 AM CONSTRUCTION CODE ADMINISTRATOR Temperature - - Respiratory Rate - - Oxygen Saturation - - Inhaled Oxygen Concentration - - Weight 104 kg (229 lb 4.8 oz) 08/15/2024 9:39 AM CONSTRUCTION CODE ADMINISTRATOR Height 171.5 cm (5' 7.5 ) 08/15/2024 9:39 AM CONSTRUCTION CODE ADMINISTRATOR Body Mass Index 35.38 08/15/2024 9:39 AM CONSTRUCTION CODE ADMINISTRATOR Plan of Treatment Not on file Procedures Procedure Name Priority Date/Time Associated Diagnosis Comments XR SHOULDER RIGHT 2 OR MORE VIEWS Routine 08/15/2024 9:34 AM CONSTRUCTION CODE ADMINISTRATOR Acute pain of right shoulder from Last 3 Months Results * XR Shoulder Right 2 or More Views (08/15/2024 9:34 AM CONSTRUCTION CODE ADMINISTRATOR) Anatomical Region Laterality Modality Upper Extremities, Shoulder Right [place]i [place] Radiography Narrative 08/15/2024 10:02 AM CONSTRUCTION CODE ADMINISTRATOR Four views right shoulder shows no fracture subluxation or dislocation 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
--- OUTSIDE RECORDS SUMMARY | 2024-11-03 10:33 | XMS_ITS | Clinical Summary ---
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
== END 2024-11-03 09:40 | disposition home or self-care (01) ==
LOC: CHSLAB 09:41
PROVIDERS: PCP Nurse Practitioner Family; Visit Provider Internal Medicine
DX: J03.90 Acute tonsillitis, unspecified (principal)
CPT/HCPCS: 36415; 80053; 85025; 86308; 87651

== ENCOUNTER 2025-01-15 10:34 | Emergency (ER) | payer OTHER, SELFPAY ==
--- NOTE | ~2025-01-15 | XR_ITS ---
EXAMINATION: XR chest 1V portable DATE: 01/15/2025 10:48 INDICATION: Chest pain TECHNIQUE: frontal view of the chest was obtained. Repeat frontal view was obtained with nipple marke rs COMPARISON: Chest radiograph dated 02/21/2024 FINDINGS: 1 20 m nodular opacity projecting between the anterior right sixth and seventh ribs which colocalizes with the nipple marker on the follow-up radiograph consistent with a nipple shadow. No other airspac e opacities, pulmonary edema, pleural effusion or pneumothorax. The cardiomediastinal silhouette is n ormal. Visualized bones and soft tissues are unremarkable. IMPRESSION: 1. No acute cardiopulmonary disease. Reviewed, dictated and finalized at location A.
[2025-01-15 10:35] VITALS: BP 146/74; PULSE 84; RESP 17; TEMP 36.7; O2SAT 96
--- NOTE | 2025-01-15 10:39 | ECG_ITS ---
Test Date: 2025-01-15 10:43:58 Measurements Intervals [place] Rate: 70 P: 60 IN: 144 QRS: 34 QRSD: 98 T: 43 QT: 374 QTc: 405 Interpretive Statements SINUS RHYTHM NORMAL ECG Compared to ECG 02/21/2024 14:51:13 HEART RATE HAS DECREASED Electronically Signed On 01-16-2025 06:33:47 CDT by Carlos James D.O.
--- NOTE | 2025-01-15 10:44 | PC.NURSE ---
covid swab sent to lab
[2025-01-15 10:55] LABS: Basophils Absolute Auto 0.08 K/mm3 (0.00-0.10); Basophils Percent Auto 0.7 % (0.0-1.0); Eosinophils Absolute Auto 0.18 K/mm3 (0.02-0.50); Eosinophils Percent Auto 1.6 % (1.0-6.0); Hematocrit 45.1 % (40.0-54.0); Hemoglobin 14.9 g/dL (14.0-18.0); Immature Granulocyte Absolute 0.08 K/mm3 (0.00-0.00); Immature Granulocyte Percent A 0.7 % (0.0-0.0); Lymphocytes Absolute Auto 2.25 K/mm3 (1.10-4.50); Lymphocytes Percent Auto 19.4 % (18.0-42.0); Mean Corpuscular Hemoglobin 27.9 pg (27.0-31.0); Mean Corpuscular Volume 84.3 fL (78.0-102.0); Monocytes Absolute Auto 0.86 K/mm3 (0.10-0.90); Monocytes Percent Auto 7.4 % (2.0-11.0); Neutrophils Absolute Auto 8.12 K/mm3 (1.70-7.20); Neutrophils Percent Auto 70.2 % (50.0-70.0); Platelet Count Result 326 K/mm3 (150-420); Red Blood Count 5.35 M/mm3 (4.70-6.10); Red Cell Distribution Width 12.5 % (11.6-14.4); White Blood Count 11.6 K/mm3 (4.8-10.8)
[2025-01-15] MEDS: SODIUM CHLORIDE 0.9% IV 1,000 ML 999 ML IV CONT (10:55)
[2025-01-15 11:07] LABS: Alanine Aminotransferase 46 U/L (6-50); Albumin Level 4.8 g/dL (3.5-5.1); Alkaline Phosphatase 59 U/L (38-126); Anion Gap 8 mmol/L (4-12); Aspartate Amino Transferase 44 U/L (17-59); Bilirubin,Total 0.5 mg/dL (0.2-1.3); Blood Urea Nitrogen 26 mg/dL (9-20); Calcium 9.4 mg/dL (8.4-10.2); Carbon Dioxide 24 mmol/L (22-30); Chloride 105 mmol/L (98-107); Estimated CRCL calculation 113 ml/min; Estimated Glomerular Filt Rate > 60; Glucose 105 mg/dL (65-110); Lipase 171 U/L (23-300); Osmolality Calculated 288 mOsm/kg (285-295); Potassium 4.1 mmol/L (3.4-5.0); Sodium 137 mmol/L (137-145); Total Protein 7.7 g/dL (6.3-8.2)
[2025-01-15 11:14] LABS: D Dimer 0.31 mg/L (0.19-0.50); Partial Thromboplastin Time 27.1 Sec (23.9-30.70); Prothrombin Time 11.1 Seconds (9.50-12.1)
[2025-01-15 11:18] LABS: Add Urine Microscopic? NO; Appearance Urine Clear (Clear); Bilirubin Urine Negative (Negative); Blood Urine Negative (Negative); Color Urine Light Yellow (Yellow); Glucose Urine UA Negative (Negative); Ketones Urine Negative (Negative); Leukocyte Esterase Ur Negative LEU/UL (Negative); Nitrate Urine Negative (Negative); Protein Urine Negative (Negative); Specific Grav Ur 1.025 (1.010-1.020); Urobilinogen Urine 0.2 mg/dL (0.2-1.0)
[2025-01-15 11:19] LABS: NT Pro B Type Natriuretic Pept < 20 pg/mL (19.9-100); Troponin I < 0.012 ng/mL (0.000-0.034)
[2025-01-15 11:31] LABS: Influenza A QL RT-PCR Negative (Negative); Influenza B QL RT-PCR Negative (Negative); RSV RNA, RT-PCR Negative (Negative); SARS-CoV-2 RNA PCR Negative (Negative)
--- OUTSIDE RECORDS SUMMARY | 2025-01-15 11:34 | XMS_ITS | Clinical Summary ---
Author Organization [facility] Medical Office Building B Address [address] [place] [address] Care Team Providers Care Digital Pre Press Operator Name Role Phone Feroz Rivera MD Primary Care Provider [phone] Allergies No known active allergies Medications amLODIPine [...] Active Active Problems No known active problems Medical History Medical History Date Comments Hypertension [...] on file Legal Sex Male 10:51 AM PROPOSAL DIRECTOR Gender Identity Not on file Sexual Orientation Not on file Obstetrics History Last Filed Vital Signs Vital Sign Reading Time Taken Comments Blood Pressure 146/84 08/15/2024 9:39 AM PROPOSAL DIRECTOR Pulse 90 08/15/2024 9:39 AM PROPOSAL DIRECTOR Temperature - - Respiratory Rate - - Oxygen Saturation - - Inhaled Oxygen Concentration - - Weight 104 kg (229 lb 4.8 oz) 08/15/2024 9:39 AM PROPOSAL DIRECTOR Height 171.5 cm (5' 7.5) 08/15/2024 9:39 AM PROPOSAL DIRECTOR Body Mass Index 35.38 08/15/2024 9:39 AM PROPOSAL DIRECTOR Plan of Treatment Health Maintenance Due Date Last Done Comments Depression Screening 1981 Hepatitis C Screening 1981 DTaP/Tdap/Td Vaccine (1 - Tdap) 1992 Varicella Vaccines (1 of 2 - 13+ 2-dose series) 1994 Hepatitis B Screening 1999 Regular Well Visit/Exam 18-64 1999 Influenza Vaccine (Season Ended) 2025 HPV Vaccines Aged Out No longer eligi ble based on patient's age to complete this topic Pneumococcal vaccine <65 Aged Out No longer eligible based on patient's age to complete this topic Insurance [facility] Care Teams Digital Pre Press Operator Relationship Specialty Start Date End Date Feroz Rivera MD [address] [place], [place] [id number] PCP - General Internal Medicine 08/04/24
--- OUTSIDE RECORDS SUMMARY | 2025-01-15 11:34 | XMS_ITS | Referral Summary ---
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 Gender Identity Not on file Sexual Orientation Not on file Last Filed Vital Signs Vital Sign Reading Time Taken Comments Blood Pressure 146/84 08/15/2024 9:39 AM WET CHAR CONVEYOR TENDER Pulse 90 08/15/2024 9:39 AM WET CHAR CONVEYOR TENDER Temperature - - Respiratory Rate - - Oxygen Saturation - - Inhaled Oxygen Concentration - - Weight 104 kg (229 lb 4.8 oz) 08/15/2024 9:39 AM WET CHAR CONVEYOR TENDER Height 171.5 cm (5' 7.5) 08/15/2024 9:39 AM WET CHAR CONVEYOR TENDER Body Mass Index 35.38 08/15/2024 9:39 AM WET CHAR CONVEYOR TENDER Plan of Treatment Not on file Insurance [facility] Care Teams Manager Consumer Insights Relationship Specialty Start Date End Date Feroz Rivera MD [address] [place] [address] PCP - General Internal Medicine 08/04/24
--- NOTE | 2025-01-15 11:35 | ED_ITS ---
HPI - Chest Pain General Chief Complaint: Chest Pain Stated Complaint: chest pain Time Seen by Provider: 01/15/25 10:35 Source: patient Mode of arrival: ambulatory Limitations: no limitations History of Present Illness HPI narrative: this is a 44-year-old male with a history of hypertension nonsmoker presents with some chest discomfort for last 2 weeks and was concerned with no radiation of his pain midsternal reproducible with no shortness of breath no diaphoresis no nausea vomiting no shortness of breath no abdominal pain no flank pain no fever chills no dysuria or hematuria. MD complaint: chest pain Onset (ago): week(s) Timing of current episode: episodic Prior episodes: Yes Onset: during rest Related Data Home Medications ?Medication ?Instructions ?Recorded ?Confirmed ?Last Taken ?Type amlodipine 10 mg PO DAILY 02/21/24 02/21/24 Unknown History Allergies Allergy/AdvReac Type Severity Reaction Status Date / Time No Known Allergies Allergy Verified 01/15/25 10:43 Review of Systems 2 Review of Systems: All systems reviewed & are unremarkable except as noted in HPI and below PMFSH Past Medical History Medical History Anxiety Patient denies medical problems Social History Social History Smoking status: Never smoker Tobacco type: e-cigarettes/vaping Alcohol intake: never Substance use: never Exam 2 Const: General: cooperative, healthy appearing, comfortable, no acute distress, well developed, alert and awake HENMT: Head: normal to inspection and No palpable skull fracture present F zoila and sinus: normal facial exam Neck: Neck: normal visual inspection, full ROM, no lymphadenopathy and no meningeal signs Resp: Effort & Inspection: normal respiratory effort and able to speak in complete sentences Auscultation: clear to auscultation bilaterally Cardio: Jugular venous distension: no JVD Palpation: normal PMI Rate: r egular rate Rhythm: regular rhythm Heart sounds: S1 normal heart sound present and S2 normal heart sound present GI: Inspection: normal to inspection : General: Yes bimanual renal exam normal bilaterally Back/Spine/Pelvis: Cervical Spine: normal cervical lordosis and cervical ROM normal Thoracic/Lumbar Spine: thoracic and lumbar spine normal to inspection and thoraco-lumbar ROM normal Skin: General skin exam: normal color and no rashes or lesions noted Neuro: General: oriented to person, oriented to place, oriented to time and patient oriented x3 Psych: Affect: Anxious affect present Course Course Emergency Course: EKG shows normal sinus rhythm chest x-ray with no acute abnormalities lab work performed troponins within normal range D-dimer within normal range the rest of his blood work performed reviewed with patient and within normal limits. Advised patient to follow with his primary at this point, possibly related to anxiety costochondritis. Advised patient to follow with his primary for further evaluation. Vital Signs Vital signs: Vital Signs Temperature 36.7 C 01/15/25 10:35 Pulse Rate 84 01/15/25 10:35 Respiratory Rate 17 01/15/25 10:35 Blood Pressure 146/74 H 01/15/25 10:35 Pulse Oximetry 96 01/15/25 10:35 Oxygen Delivery Room Air 01/15/25 10:35 Temperature 36.7 C 01/15/25 10:35 Pulse Rate 84 01/15/25 10:35 Respiratory Rate 17 01/15/25 10:35 Blood Pressure 146/74 H 01/15/25 10:35 Pulse Oximetry 96 01/15/25 10:35 Oxygen Delivery Room Air 01/15/25 10:35 MDM - Chest Pain Lab Data 01/15/25 10:50 01/15/25 10:51 Labs: Lab Results 01/15/25 01/15/25 01/15/25 Range/Units 10:50 10:51 11:12 WBC 11.6 H (4.8-10.8) K/mm3 RBC 5.35 (4.70-6.10) M/mm3 Hgb 14.9 (14.0-18.0) g/dL Hct 45.1 (40.0-54.0) % MCV 84.3 (78.0-102.0) fL MCH 27.9 (27.0-31.0) pg MCHC 33.0 (32-36) g/dL RDW 12.5 (11.6-14.4) % Plt Count 326 (150-420) K/mm3 MPV 9.0 (8.7-11.0) fl Immature Gran % (Auto) 0.7 H (0.0-0.0) % Neut % (Auto) 70.2 H (50.0-70.0) % Lymph % (Auto) 19.4 (18.0-42.0) % [place] % (Auto) 7.4 (2.0-11.0) % Eos % (Auto) 1.6 (1.0-6.0) % Baso % (Auto) 0.7 (0.0-1.0) % Lymph # (Auto) 2.25 (1.10-4.50) K/mm3 [place] # (Auto) 0.86 (0.10-0.90) K/mm3 Eos # (Auto) 0.18 (0.02-0.50) K/mm3 Baso # (Auto) 0.08 (0.00-0.10) K/mm3 Abs Immat Gran (auto) 0.08 H (0.00-0.00) K/mm3 Absolute Neuts (auto) 8.12 H (1.70-7.20) K/mm3 Absolute Nucleated RBC 0.00 (0.00-0.00) K/mm3 Nucleated RBC % 0.0 (0-0.0) % PT 11.1 (9.50-12.1) Seconds INR 1.0 APTT 27.1 (23.9-30.70) Sec D-Dimer 0.31 (0.19-0.50) mg/L Sodium 137 (137-145) mmol/L Potassium 4.1 (3.4-5.0) mmol/L Chloride 105 (98-107) mmol/L Carbon Dioxide 24 (22-30) mmol/L Anion Gap 8 (4-12) mmol/L BUN 26 H (9-20) mg/dL Creatinine 0.82 (0.7-1.3) mg/dL Estim Creat Clear Calc 113 ml/min Estimated GFR > 60 (59 - ) Glucose 105 (65-110) mg/dL Calculated Osmolality 288 (285-295) mOsm/kg Calcium 9.4 (8.4-10.2) mg/dL Total Bilirubin 0.5 (0.2-1.3) mg/dL AST 44 (17-59) U/L ALT 46 (6-50) U/L Alkaline Phosphatase 59 (38-126) U/L Troponin I < 0.012 (0.000-0.034) ng/mL NT-Pro-B Natriuret Pep < 20 (19.9-100) pg/mL Total Protein 7.7 (6.3-8.2) g/dL Albumin 4.8 (3.5-5.1) g/dL Lipase 171 (23-300) U/L Urine Color Light yellow (Yellow) Urine Appearance Clear (Clear) Urine pH 6.0 (5.0-8.0) Ur Specific [place] 1.025 H (1.010-1.020) Urine Protein Negative (Negative) Urine Glucose (UA) Negative (Negative) Urine Ketones Negative (Negative) Ur Blood (Man) Negative (Negative) Urine Nitrate Negative (Negative) Urine Bilirubin Negative (Negative) Urine Urobilinogen 0.2 (0.2-1.0) mg/dL Leukocyte Esterase Rfl Negative (Negative) ONDINA/UL Influenza A (RT-PCR) Negative (Negative) Influenza B (RT-PCR) Negative (Negative) RSV (RT-PCR) Negative (Negative) SARS-CoV-2 RNA (RT-PCR) Negative (Negative) Critical Care Time Critical Care Time Critical Care Time: No Discharge Plan Discharge Clinical Impression: Anxiety, Costalchondritis, Atypical chest pain Patient Disposition: Home Condition: Stable Instructions: Antibiotic Form, Costochondritis (ED), Chest Wall Pain (ED) Additional Instructions: Advised patient to take medication as prescribed, follow with his primary care physician within the next week further evaluation and treatment. Can use [id number] Tylenol or Motrin as needed. Patient Language: Moroccan Prescriptions: No Action meloxicam 15 mg tablet 15 mg PO DAILY Qty: 10 0RF amlodipine tablet 10 mg PO DAILY lisinopril 10 mg tablet 10 mg PO DAILY Qty: 30 0RF meclizine 25 mg tablet 25 mg PO QID Qty: 120 0RF diazepam 5 mg tablet 5 mg PO Q6H PRN (Reason: vertigo) Qty: 40 0RF diazepam [Valium] 5 mg tablet 5 mg PO Q6H PRN (Reason: anxiety) Qty: 20 0RF Follow-up/Referrals: Feroz Rivera MD [Primary Care Provider] -
--- OUTSIDE RECORDS SUMMARY | 2025-01-15 12:15 | XMS_ITS | Clinical Summary ---
Author Organization [facility] Medical Office Building B Address [address] [place] [address] Care Team Providers Care Support Staff Name Role Phone Feroz Rivera MD Primary [...] on file Legal Sex Male 10:51 AM PILE DRIVER OPERATOR HELPER Gender Identity Not on file Sexual Orientation Not on file Obstetrics History Last Filed Vital Signs Vital Sign Reading Time Taken Comments Blood Pressure 146/84 08/15/2024 9:39 AM PILE DRIVER OPERATOR HELPER Pulse 90 08/15/2024 9:39 AM PILE DRIVER OPERATOR HELPER Temperature - - Respiratory Rate - - Oxygen Saturation - - Inhaled Oxygen Concentration - - Weight 104 kg (229 lb 4.8 oz) 08/15/2024 9:39 AM PILE DRIVER OPERATOR HELPER Height 171.5 cm (5' 7.5) 08/15/2024 9:39 AM PILE DRIVER OPERATOR HELPER Body Mass Index 35.38 08/15/2024 9:39 AM PILE DRIVER OPERATOR HELPER Plan of Treatment Health Maintenance Due Date [...] patient's age to complete this topic Insurance [facility] Care Teams Support Staff Relationship Specialty Start Date End Date Feroz Rivera MD [address], [place] [id number] PCP - General Internal Medicine 08/04/24
--- OUTSIDE RECORDS SUMMARY | 2025-01-15 12:15 | XMS_ITS | Referral Summary ---
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 Gender Identity Not on file Sexual Orientation Not on file Last Filed Vital Signs Vital Sign Reading Time Taken Comments Blood Pressure 146/84 08/15/2024 9:39 AM GLOBAL MARKETING SPECIALIST Pulse 90 08/15/2024 9:39 AM GLOBAL MARKETING SPECIALIST Temperature - - Respiratory Rate - - Oxygen Saturation - - Inhaled Oxygen Concentration - - Weight 104 kg (229 lb 4.8 oz) 08/15/2024 9:39 AM GLOBAL MARKETING SPECIALIST Height 171.5 cm (5' 7.5) 08/15/2024 9:39 AM GLOBAL MARKETING SPECIALIST Body Mass Index 35.38 08/15/2024 9:39 AM GLOBAL MARKETING SPECIALIST Plan of Treatment Not on file Insurance [facility] Care Teams Extra Hand Relationship Specialty Start Date End Date Feroz Rivera MD [address] [place] [address] PCP - General Internal Medicine 08/04/24
== END 2025-01-15 11:56 | disposition home or self-care (01) ==
PROVIDERS: Emergency Provider Emergency Medicine; PCP Internal Medicine
DX: F41.9 Anxiety disorder, unspecified (principal); M94.0 Chondrocostal junction syndrome [Tietze]; R07.89 Other chest pain; I10 Essential (primary) hypertension; Z20.822 Contact with and (suspected) exposure to COVID-19
CPT/HCPCS: 36415; 71045; 80053; 81003; 83690; 83880; 84484; 85025; 85380; 85610; 85730; 87637; 93005; 96360; 99284; J7030

== ENCOUNTER 2025-02-26 08:57 | Outpatient (CLI) | payer OTHER, SELFPAY ==
--- NOTE | ~2025-02-26 | MR_ITS ---
EXAMINATION: MR hip LT wo con DATE: 02/26/2025 09:47 INDICATION: Left hip pain TECHNIQUE: Magnetic resonance imaging (MRI) of the left hip was performed without intravenous contra st. Sequences included full-field axial PD-weighted FS FSE and T1-weighted FSE, coronal of the pelvis with PD-weighted FS FSE, small field of view of the left hip with axial PD-weighted FS FSE, sagitta l PD-weighted FS FSE and coronal PD weighted FS FSE. COMPARISON: Left hip and pelvis radiographs dated 10/22/2024 FINDINGS: Bones/labrum/cartilage: Alignment is normal. No fracture, avascular necrosis or pathologic marrow replacing process. There i s mild anterior acetabular over coverage at the left hip with corresponding crossover sign evident on the prior radiograph of the pelvis which could predispose towards pincer-type femoral acetabular imp ingement. There is a small tear at the base of the posterior inferior left acetabular labrum. There i s mild posterior predominant nonuniform joint space narrowing with mild partial-thickness cartilage l oss with smooth chondral surface. There is tiny focus of likely degenerative subarticular cystlike ch yuri along the posterior femoral head/neck junction. Moderate lower lumbar spondylosis. Fluid: Symmetric physiologic amount of fluid within both hip joints. Soft tissues: Normal and symmetric muscle bulk and signal in the pelvis and visualized proximal thighs. The iliopso as, gluteal and proximal hamstring tendons are normal. The uterus is not identified and has likely be en surgically resected. Limited evaluation of visceral organs of the pelvis is otherwise unremarkable . Small fat-containing left inguinal hernia. No pathologically enlarged pelvic/inguinal lymphadenopa thy. IMPRESSION: 1. Mild left hip osteoarthritis with small tear at the posterior inferior labrum which could be relat ed to sequela of pincer-type femoral acetabular impingement with left anterior acetabular over covera ge with crossover sign evident on prior radiographs and mild cystic change at the posterior femoral h ead neck junction. 2. Small fat-containing left inguinal hernia. Reviewed, dictated and finalized at location A. IMPRESSION: 1. Mild left hip osteoarthritis with small tear at the posterior inferior labru m which could be related to sequela of pincer-type femoral acetabular impingeme nt with left anterior acetabular over coverage with crossover sign evident on p rior radiographs and mild cystic change at the posterior femoral head neck junc tion. 2. Small fat-containing left inguinal hernia.
--- OUTSIDE RECORDS SUMMARY | 2025-02-26 09:02 | XMS_ITS | Clinical Summary ---
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 Gender Identity Not on file Sexual Orientation Not on file Plan of Treatment Health Maintenance Due Date Last Done Comments Annual Physical 1984 Hepatitis C 1999 DTaP, Tdap and Td Vaccines ( 1 - Tdap) 2000 Hepatitis B Vaccines (1 of 3 - 19+ 3-dose series) 2000 HPV Vaccines (1 - 3-dose SCD M series) 2008 COVID-19 Vaccine ( - 2023-2 5 season) 2024 Meningococcal B Vaccine Aged Out No l onger eligible based on patient's age to complete this topic Meningococcal Vaccine Aged Out No migdalia gerald eligible based on patient's age to complete this topic Pneumococcal Vaccine: Pediat rics (0 to 5 Years) and At-Risk Patients (6 to 49 Years) Aged Out No longer eligible b ased on patient's age to complete this topic RSV Immunizations Under 20 Months Aged Out No longer eligible based on patient's age to complete this topic
--- OUTSIDE RECORDS SUMMARY | 2025-02-26 09:02 | XMS_ITS | Clinical Summary ---
Author Organization [facility] Medical Office Building B Address [address] [place] [address] Care Team Providers Care Marine Meteorologist Name Role Phone Feroz Rivera MD Primary Care Provider [phone] Allergies No known active allergies Medications amLODIPine [...] on file Legal Sex Male 10:51 AM E COMMERCE DIRECTOR Gender Identity Not on file Sexual Orientation Not on file Obstetrics History Last Filed Vital Signs Vital Sign Reading Time Taken Comments Blood Pressure 146/84 08/15/2024 9:39 AM E COMMERCE DIRECTOR Pulse 90 08/15/2024 9:39 AM E COMMERCE DIRECTOR Temperature - - Respiratory Rate - - Oxygen Saturation - - Inhaled Oxygen Concentration - - Weight 104 kg (229 lb 4.8 oz) 08/15/2024 9:39 AM E COMMERCE DIRECTOR Height 171.5 cm (5' 7.5) 08/15/2024 9:39 AM E COMMERCE DIRECTOR Body Mass Index 35.38 08/15/2024 9:39 AM E COMMERCE DIRECTOR Plan of Treatment Health Maintenance Due [...] patient's age to complete this topic Insurance [facility] Care Teams Marine Meteorologist Relationship Specialty Start Date End Date Feroz Rivera MD [address] [place], [place] [id number] PCP - General Internal Medicine 08/04/24
--- OUTSIDE RECORDS SUMMARY | 2025-02-26 09:02 | XMS_ITS | Referral Summary ---
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 ASSISTANT Gender Identity Not on file Sexual Orientation Not on file Last Filed Vital Signs Vital Sign Reading Time Taken Comments Blood Pressure 146/84 08/15/2024 9:39 AM TILER'S ASSISTANT Pulse 90 08/15/2024 9:39 AM TILER'S ASSISTANT Temperature - - Respiratory Rate - - Oxygen Saturation - - Inhaled Oxygen Concentration - - Weight 104 kg (229 lb 4.8 oz) 08/15/2024 9:39 AM TILER'S ASSISTANT Height 171.5 cm (5' 7.5) 08/15/2024 9:39 AM CS T Body Mass Index 35.38 08/15/2024 9:39 AM TILER'S ASSISTANT Plan of Treatment Not on file Insurance [facility] Care Teams Bricklayer Supervisor Relationship Specialty Start Date End Date Feroz Rivera MD [address] [place] [address] PCP - General Internal Medicine 08/04/24
== END 2025-02-26 08:58 | disposition home or self-care (01) ==
LOC: CHSIMG 08:59
PROVIDERS: PCP Internal Medicine; Visit Provider Internal Medicine
DX: M25.552 Pain in left hip (principal); M16.12 Unilateral primary osteoarthritis, left hip; S73.192A Other sprain of left hip, initial encounter; K40.90 Unilateral inguinal hernia, without obstruction or gangrene, not specified as recurrent
CPT/HCPCS: 73721

== ENCOUNTER 2025-04-13 11:47 | Emergency (ER) | payer OTHER, SELFPAY ==
[2025-04-13] VITALS (7 sets, daily range): BP systolic 123–152; BP diastolic 75–98; PULSE 68–98; RESP 14–21; TEMP 36.5–36.7; O2SAT 96–100
--- NOTE | 2025-04-13 11:49 | ECG_ITS ---
Test Date: 2025-04-13 11:51:41 Measurements Intervals [place] Rate: 91 P: 68 MN: 148 QRS: 28 QRSD: 89 T: 52 QT: 329 QTc: 406 Interpretive Statements SINUS RHYTHM LOW QRS VOLTAGE IN PRECORDIAL LEADS [QRS DEFLECTION < 1.0 mV IN CHEST LEADS] POSSIBLE INFERIOR MYOCARDIAL INFARCTION , PROBABLY OLD [30 ms Q WAVE IN II/aVF] Compared to ECG 01/15/2025 10:43:58 Low QRS voltage now present Myocardial infarct finding now present Electronically Signed On 04-13-2025 12:27:14 CDT by Jhon Mg M.D.
--- NOTE | 2025-04-13 11:50 | ED.CHESTPAIN ---
HPI - Chest Pain General Chief Complaint: Chest Pain Stated Complaint: chest pain Time Seen by Provider: 04/13/25 11:49 Source: patient Mode of arrival: ambulatory Limitations: no limitations History of Present Illness HPI narrative: Patient is a 44-year-old male with chest pain after exertion over the past month. Patient has on and off chest pain with some shortness of breath after taking a long walk or run towards the end of the event. He also had some dizziness at times. MD complaint: chest pain Pertinent past history: other (Hypertension) Onset (ago): month(s) (1) Timing of current episode: episodic, weekly and increasing Prior episodes: Yes Onset: during exertion Pain location: substernal and parasternal Pain radiation: none Severity: mild Pain scale (0-10): 4 Quality: sharp Relieving factors: nothing Exacerbating factors: exertion Context: other (Patient gets chest pain when he exerts himself specifically during running or brisk walking for the past month) Associated symptoms: dyspnea, sense of impending doom and other (Occasional dizziness) Treatment prior to arrival: none Risk Factors Coronary artery disease risk factors: hypertension Thoracic aortic dissection risk factors: none Related Data Home Medications ?Medication ?Instructions ?Recorded ?Confirmed ?Last Taken ?Type amlodipine 10 mg PO DAILY 02/21/24 04/13/25 Unknown History lisinopril 20 1 tablet PO DAILY 04/13/25 04/13/25 Unknown History mg-hydrochlorothiazide 25 mg tablet Allergies Allergy/AdvReac Type Severity Reaction Status Date / Time No Known Allergies Allergy Verified 04/13/25 11:57 Review of Systems Review of Systems: All systems reviewed & are unremarkable except as noted in HPI and below Constitutional: Constitutional: Reports no additional constitutional complaints Eyes: Eyes: Reports no additional eye complaints ENT: Reports system reviewed and no additional complaints, except as documented Cardiovascular: Cardiovascular: Reports no additional cardiovascular complaints Respiratory: Respiratory: Reports no additional respiratory complaints Gastrointestinal: Gastrointestinal: Reports no additional gastrointestinal complaints Genitourinary: Genitourinary: Reports no additional male genitourinary complaints Musculoskeletal: Musculoskeletal: Reports no additional musculoskeletal complaints Integumentary/Breasts: Skin/Breast: Reports system reviewed and no additional complaints, except as docu Neurologic: Reports system reviewed and no additional complaints, except as documented Psychiatric: Psychiatric: Reports no additional psychiatric complaints Endocrine: Endocrine: Reports no additional endocrine complaints Hematologic/Lymphatic: Hematologic/Lymphatic: Reports no additional hematologic/lymphatic complaints Allergic/Immunologic: Allergic/Immunologic: Reports no additional allergic/immunologic complaints [facility] Past Medical History Medical History Anxiety Patient denies medical problems Social History Social History Smoking status: Never smoker Tobacco type: e-cigarettes/vaping Alcohol intake: never Substance use: never Exam Const: General: healthy appearing Nutritional Appearance: well nourished Orientation/consciousness: patient oriented x3 HENMT: Head: normal to inspection Ears: external ears normal Face/Nose/Sinus: Normal external nose present Eyes: Conjunctivae: conjunctivae normal Pupils: Equal, round and reactive pupils present EOM: EOMs intact bilaterally Neck: Neck: normal visual inspection Chest: Chest palpation & inspection: normal inspection of the chest Resp: Effort & Inspection: normal respiratory effort and not labored Auscultation: clear to auscultation bilaterally and no crackles Cardio: Rate: regular rate Rhythm: regular rhythm Heart sounds: no murmurs GI: Inspection: non-distended GI Palp: Yes Soft to palpation and No Tenderness to palpation present (GI) Auscultation: normal bowel sounds : General: Yes bladder normal to palpation Back/Spine/Pelvis: Back: no CVA tenderness Skin: General skin exam: normal color Rashes: no rashes Wounds: no wounds Neuro: General: patient oriented x3, moves all extremities and no meningeal signs Extrem: General: normal to inspection Psych: Mental Status: mental status grossly normal Affect: normal affect Attitude: cooperative Course Vital Signs Vital signs: Vital Signs Temperature 36.5 C 04/13/25 11:50 Pulse Rate 98 04/13/25 11:50 Respiratory Rate 20 04/13/25 11:50 Blood Pressure 151/98 H 04/13/25 11:50 Pulse Oximetry 96 04/13/25 11:50 Oxygen Delivery Room Air 04/13/25 11:50 Temperature 36.7 C 04/13/25 15:16 Pulse Rate 89 04/13/25 15:16 Respiratory Rate 21 H 04/13/25 15:16 Blood Pressure 123/76 04/13/25 15:16 Pulse Oximetry 97 04/13/25 15:16 Oxygen Delivery Room Air 04/13/25 14:36 MDM - Chest Pain MDM Narrative Medical decision making narrative: Patient is a 44-year-old male with chest pain. We will do a cardiovascular workup at this time. We will check troponin twice. No further chest pain at discharge. Outpatient further workup. Lab Data Attestation: I reviewed the patient's lab results. 04/13/25 12:22 04/13/25 12:22 Labs: Lab Results 04/13/25 04/13/25 Range/Units 12:22 14:44 WBC 11.2 H (4.8-10.8) K/mm3 RBC 5.26 (4.70-6.10) M/mm3 Hgb 14.6 (14.0-18.0) g/dL Hct 43.5 (40.0-54.0) % MCV 82.7 (78.0-102.0) fL MCH 27.8 (27.0-31.0) pg MCHC 33.6 (32-36) g/dL RDW 12.3 (11.6-14.4) % Plt Count 297 (150-420) K/mm3 MPV 9.1 (8.7-11.0) fl Immature Gran % (Auto) 0.5 H (0.0-0.0) % Neut % (Auto) 69.8 (50.0-70.0) % Lymph % (Auto) 19.0 (18.0-42.0) % Vilas % (Auto) 8.8 (2.0-11.0) % Eos % (Auto) 1.4 (1.0-6.0) % Baso % (Auto) 0.5 (0.0-1.0) % Lymph # (Auto) 2.13 (1.10-4.50) K/mm3 Vilas # (Auto) 0.99 H (0.10-0.90) K/mm3 Eos # (Auto) 0.16 (0.02-0.50) K/mm3 Baso # (Auto) 0.06 (0.00-0.10) K/mm3 Abs Immat Gran (auto) 0.06 H (0.00-0.00) K/mm3 Absolute Neuts (auto) 7.84 H (1.70-7.20) K/mm3 Absolute Nucleated RBC 0.00 (0.00-0.00) K/mm3 Nucleated RBC % 0.0 (0-0.0) % D-Dimer 0.22 (0.19-0.50) mg/L Sodium 137 (137-145) mmol/L Potassium 4.3 (3.4-5.0) mmol/L Chloride 100 (98-107) mmol/L Carbon Dioxide 24 (22-30) mmol/L Anion Gap 13 H (4-12) mmol/L BUN 27 H (9-20) mg/dL Creatinine 1.40 H (0.7-1.3) mg/dL Estim Creat Clear Calc 68 ml/min Estimated GFR 55 L (59 - ) Glucose 105 (65-110) mg/dL Calculated Osmolality 289 (285-295) mOsm/kg Calcium 10.0 (8.4-10.2) mg/dL Total Bilirubin 0.5 (0.2-1.3) mg/dL AST 35 (17-59) U/L ALT 44 (6-50) U/L Alkaline Phosphatase 58 (38-126) U/L Troponin I < 0.012 < 0.012 (0.000-0.034) ng/mL NT-Pro-B Natriuret Pep < 20 (19.9-100) pg/mL Total Protein 7.9 (6.3-8.2) g/dL Albumin 4.9 (3.5-5.1) g/dL Lipase 152 (23-300) U/L ECG Data EKG #1: Attestation: I personally reviewed and interpreted this ECG as follows: ECG completion date: 04/13/25 ECG completion time: 11:56 EKG Interpretation: normal rate, sinus rhythm, no ectopy, non-specific ST changes, normal QRS, normal QT and NL axis Discharge Plan Discharge Clinical Impression: Atypical chest pain, LILIANA (acute kidney injury), Acute dehydration Patient Disposition: Home Condition: Stable Instructions: Chest Pain (ED) Additional Instructions: Please follow-up with the primary doctor in the next week. You will need to see a mechanical expert or the primary to get a outpatient stress test. Do not do any activities that cause chest pain. Come back to the ER for any worsening symptoms. Take aspirin daily. Drink plenty of water and fluids. Patient Language: Polish Prescriptions: No Action meloxicam 15 mg tablet 15 mg PO DAILY Qty: 10 0RF amlodipine tablet 10 mg PO DAILY meclizine 25 mg tablet 25 mg PO QID Qty: 120 0RF diazepam 5 mg tablet 5 mg PO Q6H PRN (Reason: vertigo) Qty: 40 0RF lisinopril-hydrochlorothiazide 20-25 mg tablet 1 tablet PO DAILY Follow-up/Referrals: Feroz Rivera MD [Primary Care Provider, Internal Medicine] Time of Disposition: 15:17
--- OUTSIDE RECORDS SUMMARY | 2025-04-13 12:01 | XMS_ITS | Clinical Summary ---
[facility] Address [address] [place] [address] Care Team Providers Care Rubber Printing Machine Operator Name Role Phone Feroz Rivera MD Primary Care Provider [phone] Allergies No known active allergies Medications amLODIPine [...] on file Legal Sex Male 10:51 AM DIRECTOR OF ANESTHESIA SERVICES Gender Identity Not on file Sexual Orientation Not on file Obstetrics History Last Filed Vital Signs Vital Sign Reading Time Taken Comments Blood Pressure 146/84 08/15/2024 9:39 AM DIRECTOR OF ANESTHESIA SERVICES Pulse 90 08/15/2024 9:39 AM DIRECTOR OF ANESTHESIA SERVICES Temperature - - Respiratory Rate - - Oxygen Saturation - - Inhaled Oxygen Concentration - - Weight 104 kg (229 lb 4.8 oz) 08/15/2024 9:39 AM DIRECTOR OF ANESTHESIA SERVICES Height 171.5 cm (5' 7.5) 08/15/2024 9:39 AM DIRECTOR OF ANESTHESIA SERVICES Body Mass Index 35.38 08/15/2024 9:39 AM DIRECTOR OF ANESTHESIA SERVICES Plan of Treatment Health Maintenance Due Date Last Done Comments Depression Screening 1980 Hepatitis C Screening 1980 DTaP/Tdap/Td Vaccine (1 - Tdap) 1992 Varicella Vaccines (1 of 2 - 13+ 2-dose series) 1994 Hepatitis B Screening 1999 Regular Well Visit/Exam 18-64 1999 HPV Vaccines (1 - 3-dose SCD M series) 2008 Influenza Vaccine (#1) 2025 Pneumococcal vaccine <65 Aged Out No longer eligible based on patient's age to complete this topic Insurance [facility] Care Teams Rubber Printing Machine Operator Relationship Specialty Start Date End Date Feroz Rivera MD [address] [place], [place] [id number] PCP - General Internal Medicine 08/04/24
--- OUTSIDE RECORDS SUMMARY | 2025-04-13 12:08 | XMS_ITS | Clinical Summary ---
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
[2025-04-13 12:30] LABS: Hematocrit 43.5 % (40.0-54.0); Hemoglobin 14.6 g/dL (14.0-18.0); Immature Granulocyte Percent A 0.5 % (0.0-0.0); Lymphocytes Absolute Auto 2.13 K/mm3 (1.10-4.50); Mean Corpuscular HGB Conc 33.6 g/dL (32-36); Mean Corpuscular Hemoglobin 27.8 pg (27.0-31.0); Mean Corpuscular Volume 82.7 fL (78.0-102.0); Nucleated Red Blood Cells Absolute Auto 0.00 K/mm3 (0.00-0.00); Nucleated Red Blood Cells Perc 0.0 % (0-0.0); Platelet Count Result 297 K/mm3 (150-420); Red Blood Count 5.26 M/mm3 (4.70-6.10); White Blood Count 11.2 K/mm3 (4.8-10.8)
[2025-04-13 12:40] LABS: Alanine Aminotransferase 44 U/L (6-50); Albumin Level 4.9 g/dL (3.5-5.1); Alkaline Phosphatase 58 U/L (38-126); Anion Gap 13 mmol/L (4-12); Aspartate Amino Transferase 35 U/L (17-59); Bilirubin,Total 0.5 mg/dL (0.2-1.3); Blood Urea Nitrogen 27 mg/dL (9-20); Calcium 10.0 mg/dL (8.4-10.2); Carbon Dioxide 24 mmol/L (22-30); Chloride 100 mmol/L (98-107); Estimated CRCL calculation 68 ml/min; Estimated Glomerular Filt Rate 55; Glucose 105 mg/dL (65-110); Lipase 152 U/L (23-300); Osmolality Calculated 289 mOsm/kg (285-295); Potassium 4.3 mmol/L (3.4-5.0); Sodium 137 mmol/L (137-145); Total Protein 7.9 g/dL (6.3-8.2)
[2025-04-13 12:52] LABS: NT Pro B Type Natriuretic Pept < 20 pg/mL (19.9-100); Troponin I < 0.012 ng/mL (0.000-0.034)
[2025-04-13 15:12] LABS: Troponin I < 0.012 ng/mL (0.000-0.034)
== END 2025-04-13 15:31 | disposition home or self-care (01) ==
PROVIDERS: Emergency Provider Emergency Medicine; PCP Internal Medicine
DX: R07.89 Other chest pain (principal); N17.9 Acute kidney failure, unspecified; E86.0 Dehydration; Z79.899 Other long term (current) drug therapy
CPT/HCPCS: 36415; 80053; 83690; 83880; 84484; 85025; 85380; 93005; 99284

== ENCOUNTER 2025-04-14 14:10 | Outpatient (CLI) | payer OTHER, SELFPAY ==
--- NOTE | ~2025-04-14 | XR_ITS ---
EXAMINATION: XR chest 2V, 04/14/2025 14:00 CDT HISTORY: Chest Pain COMPARISON: No comparisons available. Technique: 2 views obtained. Findings: The lungs are clear, no effusion. No pneumothorax. Heart is normal size. Mediastinal and hilar contours are within normal limits. Bony thorax no acute abnormality. Impression: No acute cardiopulmonary abnormality. Reviewed, dictated and finalized at location A. Impression: No acute cardiopulmonary abnormality.
--- OUTSIDE RECORDS SUMMARY | 2025-04-14 15:53 | XMS_ITS | Clinical Summary ---
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
--- OUTSIDE RECORDS SUMMARY | 2025-04-14 15:53 | XMS_ITS | Clinical Summary ---
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 Gender Identity Not on file Sexual Orientation Not on file Obstetrics History Last Filed Vital Signs Vital Sign Reading Time Taken Comments Blood Pressure 146/84 08/15/2024 9:39 AM MACHINE CEMENTER Pulse 90 08/15/2024 9:39 AM MACHINE CEMENTER Temperature - - Respiratory Rate - - Oxygen Saturation - - Inhaled Oxygen Concentration - - Weight 104 kg (229 lb 4.8 oz) 08/15/2024 9:39 AM MACHINE CEMENTER Height 171.5 cm (5' 7.5) 08/15/2024 9:39 AM MACHINE CEMENTER Body Mass Index 35.38 08/15/2024 9:39 AM MACHINE CEMENTER Plan of Treatment Health Maintenance Due Date [...] patient's age to complete this topic Insurance [facility] Care Teams Forming Tube Selector Relationship Specialty Start Date End Date Feroz Rivera MD [address] [place], [place] [id number] PCP - General Internal Medicine 08/04/24
== END 2025-04-14 14:11 | disposition home or self-care (01) ==
PROVIDERS: PCP Internal Medicine; Visit Provider Internal Medicine
DX: R07.9 Chest pain, unspecified (principal)
CPT/HCPCS: 71046

== ENCOUNTER 2025-04-27 09:29 | Outpatient (CLI) | payer OTHER, SELFPAY ==
--- NOTE | 2025-04-27 09:37 | EST_ITS ---
Patient Info Name: Nirav Yoder Age: 44 years : 1980 Gender: Male Ht: 67 in Wt: 216 lbs BSA: 2.19 m2 HR: 83 bpm BP: 120 / 69 mmHg Heart Rhythm: Sinus Rhythm Technical Quality: Good Exam Date: 04/27/2025 9:37 AM Patient Status: O Admit Date: 04/27/2025 Exam Type: CA stress test treadmill A treadmill exercise stress test was performed. Staff Attending Provider: Feroz Rivera MD Summary 1. 1. Negative Steven exercise stress test for ischemic ST changes by ECG criteria. 2. 2. Good functional capacity, achieving 10 METs of workload. 3. 3. Baseline hypertension. 4. 4. Appropriate HR response to exercise. 5. 5. Appropriate HR recovery at 1 minute post exercise. 6. 6. No imaging with stress testing. History/Risk Factors Hypertension: Yes Dyslipidemia: Yes Protocol: Steven Stress ECG Details Stage: REST Duration (min): 1 min : 30 sec Speed (mph): 0.0 Grade (%): 0 HR (bpm): 82 SBP (mmHg): 120 DBP (mmHg): 69 METS: --- Stage: REST Duration (min): 5 min : 27 sec Speed (mph): 0.0 Grade (%): 0 HR (bpm): 91 SBP (mmHg): 120 DBP (mmHg): 69 METS: --- Stage: STAGE 1 Duration (min): 1 min : 0 sec Speed (mph): 1.7 Grade (%): 10 HR (bpm): 107 SBP (mmHg): 120 DBP (mmHg): 69 METS: --- Stage: STAGE 1 Duration (min): 2 min : 0 sec Speed (mph): 1.7 Grade (%): 10 HR (bpm): 116 SBP (mmHg): 120 DBP (mmHg): 69 METS: --- Stage: STAGE 1 Duration (min): 3 min : 0 sec Speed (mph): 1.7 Grade (%): 10 HR (bpm): 119 SBP (mmHg): 120 DBP (mmHg): 69 METS: --- Stage: STAGE 2 Duration (min): 1 min : 0 sec Speed (mph): 2.5 Grade (%): 12 HR (bpm): 134 SBP (mmHg): 163 DBP (mmHg): 90 METS: --- Stage: STAGE 2 Duration (min): 2 min : 0 sec Speed (mph): 2.5 Grade (%): 12 HR (bpm): 147 SBP (mmHg): 163 DBP (mmHg): 90 METS: --- Stage: STAGE 2 Duration (min): 3 min : 0 sec Speed (mph): 2.5 Grade (%): 12 HR (bpm): 150 SBP (mmHg): 188 DBP (mmHg): 94 METS: --- Stage: STAGE 3 Duration (min): 1 min : 0 sec Speed (mph): 3.4 Grade (%): 14 HR (bpm): 164 SBP (mmHg): 188 DBP (mmHg): 94 METS: --- Stage: STAGE 3 Duration (min): 2 min : 0 sec Speed (mph): 3.4 Grade (%): 14 HR (bpm): 172 SBP (mmHg): 188 DBP (mmHg): 94 METS: --- Stage: STAGE 3 Duration (min): 2 min : 48 sec Speed (mph): 3.4 Grade (%): 14 HR (bpm): 175 SBP (mmHg): 203 DBP (mmHg): 70 METS: --- Stage: RECOVERY Duration (min): 0 min : 11 sec Speed (mph): 1.5 Grade (%): 0 HR (bpm): 172 SBP (mmHg): 203 DBP (mmHg): 70 METS: --- Stage: RECOVERY Duration (min): 1 min : 11 sec Speed (mph): 0.0 Grade (%): 0 HR (bpm): 155 SBP (mmHg): 203 DBP (mmHg): 70 METS: --- Stage: RECOVERY Duration (min): 2 min : 11 sec Speed (mph): 0.0 Grade (%): 0 HR (bpm): 144 SBP (mmHg): 135 DBP (mmHg): 60 METS: --- Stage: RECOVERY Duration (min): 3 min : 11 sec Speed (mph): 0.0 Grade (%): 0 HR (bpm): 130 SBP (mmHg): 135 DBP (mmHg): 60 METS: --- Stage: RECOVERY Duration (min): 4 min : 11 sec Speed (mph): 0.0 Grade (%): 0 HR (bpm): 128 SBP (mmHg): 117 DBP (mmHg): 64 METS: --- Stage: RECOVERY Duration (min): 5 min : 11 sec Speed (mph): 0.0 Grade (%): 0 HR (bpm): 122 SBP (mmHg): 117 DBP (mmHg): 64 METS: --- Stage: RECOVERY Duration (min): 5 min : 20 sec Speed (mph): 0.0 Grade (%): 0 HR (bpm): 124 SBP (mmHg): 117 DBP (mmHg): 64 METS: --- Rest HR: 91 bpm Peak HR: 175 bpm Rest Sys BP: 120 mmHg Peak Sys BP: 203 mmHg Max Pred HR: 177 bpm % Max Pred HR: 99 % Target HR: 150 bpm Max RPP: 35,525 bpm*mmHg Jackson Score: -8 Target HR Summary: Test terminated after reaching target heart rate (85% max predicted) BP Response: Normal blood pressure response Termination Reason: Fatigue,Dyspnea Cardiac Symptoms: None Max ST Seg Deviation: 3.30 mm Total Time: 8 min : 48 sec Rest Scruggs BP: 69 mmHg Peak Scruggs BP: 70 mmHg Angina Score: None Total METS: 10.3 Resting ECG Normal sinus rhythm - normal ECG. Stress ECG No abnormal ST/T wave changes with exercise. Arrhythmias Occasional PVCs. Report Signatures
--- OUTSIDE RECORDS SUMMARY | 2025-04-27 10:27 | XMS_ITS | Clinical Summary ---
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
--- OUTSIDE RECORDS SUMMARY | 2025-04-27 10:27 | XMS_ITS | Clinical Summary ---
Author Organization [facility] Address [address] [place] [address] Care Team Providers Care Lap Winder Name Role Phone Feroz Rivera MD Primary [...] on file Legal Sex Male 10:51 AM GIS SCIENTIST Gender Identity Not on file Sexual Orientation Not on file Obstetrics History Last Filed Vital Signs Vital Sign Reading Time Taken Comments Blood Pressure 146/84 08/15/2024 9:39 AM GIS SCIENTIST Pulse 90 08/15/2024 9:39 AM GIS SCIENTIST Temperature - - Respiratory Rate - - Oxygen Saturation - - Inhaled Oxygen Concentration - - Weight 104 kg (229 lb 4.8 oz) 08/15/2024 9:39 AM GIS SCIENTIST Height 171.5 cm (5' 7.5) 08/15/2024 9:39 AM GIS SCIENTIST Body Mass Index 35.38 08/15/2024 9:39 AM GIS SCIENTIST Plan of Treatment Health Maintenance Due Date [...] patient's age to complete this topic Insurance [facility] Care Teams Lap Winder Relationship Specialty Start Date End Date Feroz Rivera MD [address] [place], [place] [id number] PCP - General Internal Medicine 08/04/24
== END 2025-04-27 09:30 | disposition home or self-care (01) ==
LOC: CHSCARD 09:32
PROVIDERS: PCP Internal Medicine; Visit Provider Internal Medicine
DX: R07.9 Chest pain, unspecified (principal); R94.31 Abnormal electrocardiogram [ECG] [EKG]
CPT/HCPCS: 93017